=== PATIENT | female | born 1950 | race Caucasian/White ===

== ENCOUNTER 2017-11-02 10:11 | Inpatient (IN) | payer OTHER ==
[2017-11-02] MEDS: ALBUTEROL SO4 2.5/IPRATROPIUM 0.5 INH SOL 3 ML VIAL.NEB. NEB SCH ×4 (10:17→11:29)
[2017-11-02] MEDS ORDERED: DEXAMETHASONE SOD PHOSPHATE 10 MG/1 ML VIAL IVPUSH ONE ×2 (10:31→19:02)
[2017-11-02] MEDS ORDERED: RACEPINEPHRINE IH SOL 2.25% 11.25 MG/0.5 ML VIAL IH ONE (10:33)
[2017-11-02] MEDS ORDERED: DEXAMETHASONE SOD PHOSPHATE 10 MG/1 ML VIAL ONE ×2 (10:34→19:25)
--- NOTE | 2017-11-02 10:51 | PDOC ---
History of Present Illness - General Chief Complaint: Shortness of Breath Stated Complaint: diff breath Time Seen by Provider: 11/02/17 10:30 - History of Present Illness Initial Comments: 11/02/17 10:36 67yo F hx amyloid angiopathy c/b multiple hemorrhagic bleeds, most recently August 2017 s/p intubation, PEG tube ([facility], extubated 10/10), hx of heavy smoking but no diagnosis of COPD presents to the ED with progressive respiratory distress since extubation. Pt's and brother at bedside provide most of the history due to pts clinical condition. They report pt has had respiratory issue since she was DC from the hospital. She was referred to ENT on 10/31 but per her refused a scope at the time. Pt has been on ventolin and albuterol nebs intermittently. Pt has prednisone/cortisone listed as allergies but pt got steroids during last inpt admission to [facility] per . Pt's states at time steroids make her itch. No recent fevers, chills. Pt was seen at [facility] twice over the last week for the respiratory issues. Pt was admitted to [facility] mid september for aggressive behavior thought to be due to amyloid. Pt's behavior is improved since she was initiated on haldol BID, states she is currently at her mental baseline. Remainder of history limited due to pt' s mental status. Past History - Past Medical History Allergies/Adverse Reactions: Allergies Allergy/AdvReac Type Severity Reaction Status Date / Time aspirin Allergy Verified 11/02/17 10:51 clindamycin Allergy Verified 11/02/17 10:27 codeine Allergy Verified 11/02/17 10:27 cortisone Allergy Verified 11/02/17 10:27 NSAIDS (Non-Steroidal Allergy Verified 11/02/17 10:51 Anti-Inflamma prednisone Allergy Verified 11/02/17 10:27 Cortisone injection Allergy itching Uncoded 11/02/17 10:27 metal Allergy Uncoded 11/02/17 10:27 Home Medications: Ambulatory Orders Haloperidol [Haldol -] 2 mg PO BID 11/02/17 Zolpidem Tartrate [Ambien] 5 mg PO HS 11/02/17 Cardiac Disorders: Yes (MVP) - Suicide/Smoking/Psychosocial Hx Smoking History: Current every day smoker Have you smoked in the past 12 months: Yes Number of Cigarettes Smoked Daily: 40 'Breaking Loose' booklet given: 03/17/14 Hx Alcohol Use: No Review of Systems - Review of Systems Comments:: 11/02/17 10:52 +SOB otherwise UTO *Physical Exam - Physical Exam Comments: 11/02/17 10:52 GENERAL: Awake, alert, in respiratory distress EYES: PERRLA, EOMI ENT: no evidence of OP obstruction or swelling NECK: +stridor LUNGS: Breath sounds equal, +transmitted upper airway sounds. Minimal wheezing, and no crackles HEART: Regular rate and rhythm, normal S1 and S2, no murmurs, rubs or gallops ABDOMEN: Soft, nontender, normoactive bowel sounds. No guarding, no rebound. No masses EXTREMITIES: Normal range of motion, no edema. No clubbing or cyanosis. No cords, erythema, or tenderness NEUROLOGICAL: cranial nerves grossly intact, normal strength x4 SKIN: Warm, Dry, normal turgor, no rashes or lesions noted. ED Treatment Course - LABORATORY CBC & Chemistry Diagram: 11/02/17 10:31 11/02/17 10:31 - RADIOLOGY Radiology Studies Ordered: Category Date Time Status CHEST X-RAY PORTABLE* [RAD] Stat Radiology 11/02/17 10:34 Ordered Medical Decision Making - Medical Decision Making 11/02/17 10:55 67yo F hx amyloid angiomyopathy c/b ICH s/p recent extubation 10/10 presents in respiratory distress likely 2/2 upper airway edema. Pt currently on bipap, given decadron, racemic epi, duonebs. CXR appears clear on my read. Labs including ABG pending. Pt will likely need transfer to ICU and ENT evaluation at [facility]. 11/02/17 13:42 Pt significantly improved on bipap after interventions Trop 0.12, likely demand ischemia from resp distress Case discussed with Dr. Laboy from [facility], awaiting call back after she discusses with attending 11/02/17 14:[address] Woodson who accepts pt to ICU. No beds for now, will work on making one 11/02/17 14:51 Case discussed with Dinora Capone, pt accepted for admission to Dr. Segura. 11/02/17 18:55 As of now, pt remains in ED as no ICU beds. Pt is stable on BIPAP. Signed out to overnight attending. *DC/Admit/Observation/Transfer Diagnosis at time of Disposition: Postextubation stridor - Discharge Dispostion Condition at time of disposition: Critical Decision to Admit order: Yes - Referrals - Patient Instructions - Post Discharge Activity - Attestations Physician Attestion: 11/02/17 14:54 I, Dr. Rolo Suarez MD, attest that this document has been prepared under my direction and personally reviewed by me in its entirety. I further attest, that it accurately reflects all work, treatment, procedures and medical decision -making performed by me.
[2017-11-02 11:22] LABS: BASO % 1.5 % (0-2.0); EOS % 0.1 % (0-4.5); HEMATOCRIT 43.6 % (32.4-45.2); HEMOGLOBIN 14.4 GM/dl (10.7-15.3); LYMPH % 8.3 % (8-40); MCH 30.8 pg (25.7-33.7); MEAN CELL VOLUME 93.2 fl (80-96); MEAN PLT VOLUME 8.5 fl (7.5-11.1); MONO % 2.2 % (3.8-10.2); NEUT % 87.9 % (42.8-82.8); PLATELET COUNT 283 K/MM3 (134-434); RBC 4.68 M/mm3 (3.60-5.2); RDW 13.6 % (11.6-15.6); WHITE BLOOD COUNT 8.9 K/mm3 (4.0-10.8)
[2017-11-02 11:28] LABS: ALBUMIN 4.2 g/dl (3.5-5.0); ALK PHOS 76 U/L (32-92); ANION GAP 10 (8-16); BILIRUBIN,TOTAL 0.8 mg/dl (0.2-1.0); BLOOD UREA NITROGEN 12 mg/dl (7-18); CALCIUM 9.5 mg/dl (8.4-10.2); CHLORIDE 104 mmol/L (98-107); CO2 25 mmol/L (22-28); GLUCOSE,RANDOM 106 mg/dl (74-106); SGOT/AST 22 U/L (10-42); SGPT/ALT 13 U/L (10-40); SODIUM 139 mmol/L (136-145); TOT PROT 7.2 g/dl (6.4-8.3)
[2017-11-02 11:33] LABS: CREATININE < 0.8 mg/dl (0.6-1.3)
[2017-11-02 12:50] LABS: ARTERIAL BLD GAS O2 SATURATION 95.8 % (90-98.9); ARTERIAL BLOOD GAS BASE EXCESS -1.2 meq/l (-2-2); ARTERIAL BLOOD GAS PCO2 48.5 mmHg (35-45); ARTERIAL BLOOD GAS PO2 82.9 mmHg (80-100); ARTERIAL BLOOD GAS pH 7.33 (7.35-7.45)
[2017-11-02 12:56] LABS: ALLENS TEST POSITIVE
[2017-11-02] MEDS ORDERED: HALOPERIDOL 2 MG TABLET PO ONE (14:16)
[2017-11-02] MEDS ORDERED: ALBUTEROL SO4 2.5/IPRATROPIUM 0.5 INH SOL 3 ML VIAL.NEB. NEB PRN (22:54)
[2017-11-02] MEDS ORDERED: ZOLPIDEM TARTRATE 5 MG TABLET PO ONE (23:02)
--- NOTE | 2017-11-02 23:03 | CONSULT ---
Consult Consult Specialty:: pulm critcal care Referred by:: johnathan ac Reason for Consultation:: resp insufficiency - History of Present Illness Chief Complaint: resp distress History of Present Illness: This is a 67yo F w/ pmhx of heavy smoking, ? COPD, cerebral amyloid angiopathy s /p multiple ICH, most recently a long hospitalization at [facility] ([facility]) in August 2017 where she req'ed intubation (extubated 10/10/17), and PEG tube, and eventually discharged to home. As per chart review, and brother endorse that she has had progressively worsening resp distress since her discharge to home. Pt was seen at [facility] twice over the last week for the respiratory issues. Pt was admitted to [facility] mid september for aggressive behavior thought to be due to amyloid; improved since being on home haldol BID and is at baseline MS. Of note, she was referred to ENT on 10/31 but refused a scope at the time. Pt has been on ventolin and albuterol nebs intermittently. Pt has prednisone/cortisone as listed as allergies (causes itching), but received steroids during her hospitalization at [facility] (per ) . No recent fevers, chills. At [place], pt VSS, but was noted to have SOB and mild inspiratory and expiratory stridor on exam. She was placed on Bipap with improvement, given IV decadron, and albuterol and atrovent nebs. Her labs were remarkable for ABG 7.33 /48/82, trop .12--> 0.07. CXR c/w chronic emphysematous changes. EKG normal. Pt admitted to [facility] ICU for further management of acute resp distress. Upon arrival to [facility] ICU, pt is alert and oriented to self and place only, confused, slow to speak given her neuro hx, and not able to provide a history. On exam has audible inspiratory and expiratory stridor, denies SOB/ dyspnea/ CP. Breath sounds are CTA b/l. oropharynx exam is unremarkable, neck is supple and no swelling appreciated. She is breathing comfortably off bipap and on RA sat'ing 95-100%. Albuterol, atrovent, spirvira, and haldol ordered. - History Source History Provided By: Patient, Medical Record Limitations to Obtaining History: Clinical Condition - Past Medical History BROADCAST NEWS PRODUCER: Yes: Other (cerbral amyloid angiopathy s/p multiple hemorrhagic bleeds) Cardio/Vascular: No: AFIB, Aneurysm, Aortic Insufficiency, Aortic Stenosis, CAD , CHF, Deep Vein Thrombosis, HTN, Hyperlipdemia, [place], Mitral Insufficiency, Mitral Stenosis, Murmur, Pulmonary Hypertension, Other Pulmonary: Yes: COPD (possible, unconfirmed) Gastrointestinal: No: Ascites, Cancer, Constipation, Crohn's Disease, Diverticulitis, Diverticulosis, Esophageal Varices, Gastritis, GERD, GI Bleed, Hemorrhoids, Hiatal Hernia, Inflamatory Bowel Disease, Irritable Bowel Disease, Pancreatitis, Peptic Ulcer Disease, Ulcerative Colitis, Other Hepatobiliary: No: Cirrhosis, Cholelithiasis, Cholecystitis, Choledocholithiasis , Hepatitis A, Hepatitis B, Hepatitis C, Other Renal/: No: Renal Failure, Renal Inusuff, BPH, Cancer, Hematuria, Hemodialysis , Neurogenic Bladder, Renal Calculi, UTI, Other Reproductive: No: Ectopic , Endometriosis, Fibroids, PID, Polycystic Ovary Syndrome, Postmenopausal, Other ...: No Heme/Onc: No: Anemia, B12 Deficiency, Bleeding Disorder, Cancer, Current Chemotherapy, Current Radiation Therapy, Hemochromatosis, Hypercoaguable State, Myeloproliferative Synd, Sickle Cell Disease, Sickle Cell Trait, Thrombocytopenia, Other Infectious Disease: No: AIDS, C-Diff, Herpes Zoster, HIV, MRSA, STD's, Tuberculosis, VREF, Other Psych: Yes: Other (agitation) Musculoskeletal: No: Bursitis, Chronic low back pain, Hemiparesis, Hemiplegia, Osteoarthritis, Paraplegia, Other Rheumatology: No: Fibromyalgia, Gout, Lupus, Rheumatoid Arthritis, Sarcoidosis, Vasculitis, Other ENT: No: Allergic Rhinitis, Sinusitis, Other Endocrine: No: Amherst's Disease, Kvng's Disease, Diabetes Insipidus, Diabetes Mellitus, Hyperparathyroidism, Hyperthyroidism, Hypothyroidism, Osteopenia, SIADH, Other Dermatology: No: Basal Cell, Cellulitis, Eczema, Melanoma, Psoriasis, Squamous Cell, Other - Alcohol/Substance Use Hx Alcohol Use: No History of Substance Use: reports: None - Smoking History Smoking history: Former smoker Have you smoked in the past 12 months: Yes Aproximately how many cigarettes per day: 40 - Social History Usual Living Arrangement: With Spouse ADL: Independent Place of : [place] History of Recent Travel: No Home Medications - Allergies Allergies/Adverse Reactions: Allergies Allergy/AdvReac Type Severity Reaction Status Date / Time aspirin Allergy Verified 11/02/17 10:51 clindamycin Allergy Verified 11/02/17 10:27 codeine Allergy Verified 11/02/17 10:27 cortisone Allergy Verified 11/02/17 10:27 NSAIDS (Non-Steroidal Allergy Verified 11/02/17 10:51 Anti-Inflamma prednisone Allergy Verified 11/02/17 10:27 Cortisone injection Allergy itching Uncoded 11/02/17 10:27 metal Allergy Uncoded 11/02/17 10:27 - Home Medications Home Medications: Ambulatory Orders Haloperidol [Haldol -] 2 mg PO BID 11/02/17 Zolpidem Tartrate [Ambien] 5 mg PO HS 11/02/17 Family Disease History - Family Disease History Family History: Unremarkable Review of Systems - Review of Systems Constitutional: reports: No Symptoms Eyes: reports: No Symptoms HENT: reports: No Symptoms Neck: reports: No Symptoms Cardiovascular: reports: No Symptoms. denies: Chest Pain, Edema, Palpitations Respiratory: reports: SOB, Other (stridor) Gastrointestinal: reports: No Symptoms Genitourinary: reports: No Symptoms Breasts: reports: No Symptoms Reported Musculoskeletal: reports: No Symptoms Integumentary: reports: No Symptoms Neurological: denies: No Symptoms, Change in LOC, Change in Speech, Confusion, Dizziness, Headache, Incoordination, Numbness, Parasthesia, Pre-Existing Deficit , Seizure, Syncope, Tremors, Unsteady Gait, Weakness, Other Endocrine: denies: No Symptoms, Excessive Sweating, Flushing, Increased Hunger, Increased Thirst, Intolerance to Cold, Intolerance to Heat, Unexplained Weight Gain, Unexplained Weight Loss, Other Hematology/Lymphatic: reports: No Symptoms. denies: Swollen Glands Psychiatric: reports: Other (agitation) Physical Exam Vital Signs: Vital Signs Temperature 98.7 F 11/02/17 22:18 Pulse Rate 80 11/02/17 22:18 Respiratory Rate 18 11/02/17 22:18 Blood Pressure 156/98 11/02/17 22:18 O2 Sat by Pulse Oximetry (%) 99 11/02/17 22:18 Constitutional: Yes: Well Nourished, No Distress, Calm Eyes: Yes: WNL, Conjunctiva Clear, EOM Intact HENT: Yes: WNL, Atraumatic, Normocephalic Neck: Yes: WNL, Supple, Trachea Midline. No: Lymphadenopathy, Tenderness Cardiovascular: Yes: WNL, Regular Rate and Rhythm Respiratory: Yes: WNL, Regular, CTA Bilaterally, Stridor. No: Cough, On BiPap, Rales Gastrointestinal: Yes: WNL, Normal Bowel Sounds ...Rectal Exam: Yes: Deferred Renal/: Yes: WNL Breast(s): Yes: WNL Musculoskeletal: Yes: Muscle Weakness Extremities: Yes: WNL Edema: No Peripheral Pulses WNL: Yes Integumentary: Yes: WNL Wound/Incision: No: Clean/Dry, Well Approximated, Sutures Intact, [place] Intact , Steri Strips, Open to air, Dressing Dry and Intact, Dressing Removed, [place] Removed, Sutures Removed, Draining, Reddened, Bleeding, Excoriated, Unapproximated, Other Neurological: Yes: WNL, Alert. No: Oriented (oriented to self and place. re- oriented to time), Facial Droop, Numbness, Seizure, Tremors ...Motor Strength: LLE, RLE (4/5 strength b/l) Psychiatric: Yes: WNL, Alert (conversive, delay in speech most likely 2/2 angiopathy) Labs: CBC, BMP 11/02/17 10:31 11/02/17 10:31 Problem List - Problems (1) Cerebral amyloid angiopathy Code(s): E85.4 - ORGAN-LIMITED AMYLOIDOSIS; I68.0 - CEREBRAL AMYLOID ANGIOPATHY (2) Intracranial hemorrhage Code(s): I62.9 - NONTRAUMATIC INTRACRANIAL HEMORRHAGE, UNSPECIFIED (3) Acute respiratory insufficiency Code(s): R06.89 - OTHER ABNORMALITIES OF BREATHING (4) Insomnia Code(s): G47.00 - INSOMNIA, UNSPECIFIED (5) Laryngeal stridor Code(s): J38.5 - LARYNGEAL SPASM Assessment/Plan This is a 67 yo woman with pmh of amyloid angiopathy, who presented to [place] ED w/ worsening respiratory distress at home, now admitted to [facility] ICU from [place] for further management of acute resp distress on bipap. #Respiratory insufficiency most likely 2/2 laryngeal edema of unclear origin ( recently extubation at [facility] vs rxn?) vs ?COPD exacerbation in the setting of distress and stridor, requiring bipap at [place]; now improved. Sat'ing 96- 100% off bipap and on RA; h/o heavy former smoker, recently extubated at [facility] on 10/10. CXR unremarkable - humidified 2L NC O2 as needed - Bipap if increased WOB - albuterol and atrovent nebs - spiriva daily - ENT consulted - Dr. Saldivar - send D-dimer - Echo #Amyloid angiopathy s/p multiple hemorrhagic bleeds (last in 08/2017) - Will require outpt neurology f/u, if pt not currently followed - Monitor MS for acute changes #h/o Agitation - Home haldol BID - UA #h/o Insomnia - Home Ambien 5mg qHS PPX: -Lovenox Full code
--- NOTE | 2017-11-02 23:26 | PN ---
Teaching Attending Note Name of Resident: Valentin Gill ATTENDING PHYSICIAN STATEMENT I saw and evaluated the patient. I reviewed the resident's note and discussed the case with the resident. I agree with the resident's findings and plan as documented. SUBJECTIVE: Patient is a 67 year old woman with history of cerebral? amyloid angiopathy transferred from [facility] for shortness of breath and acute respiratory failure that required BIPAP therapy. She has had progressive and/or ?epiosidc SOB since extubation on 10/10/17 after a long hospital stay at [facility] for intracranial hemorrhage. Her PMH is significant for multiple episodes of intracranial hemorrhage, allergy to steroids?, prior PEG feeding at [facility], episodes of confusional state and agitation and heavy smoking, though there is no confirmed diagnosis of COPD. She reported refused laryngoscopy by ENT on 10/31/17 for unclear reasons. In the ICU, patient is comfortable on room air off BIPAP, but is confused with slow speech and poor memory. OBJECTIVE: Alert, confused, but in no acute respiratory distress Vital Signs Period Temp Pulse Resp BP Sys/Hall Pulse Ox Last 24 Hr 98.4 F-98.7 F 67-108 18-28 112-157/52-101 91-100 HEENT: No Jaundice, eye redness or discharge, PERRLA, EOMI. Normocephalic, atraumatic. External ears are normal and hearing is grossly intact. No nasal discharge. Neck: Supple, nontender. No palpable adenopathy or thyromegaly. No JVD Chest: Good effort. Good air entry. No rales or wheezing. Clear to auscultation and percussion. Heart: Regular. No S3, rub or murmur Abdomen: Not distended, soft, nontender and no HSM. No rebound or guarding. Normoactive bowel sounds. Ext: Peripheral pulses intact. No leg edema. Skin: Warm and dry. No petechiae, rash or ecchymosis. Neuro: Alert and calm. Confused, but able to follow simple commands. Poor memory. Oriented to person. CN 2-12 grossly intact. Sensation grossly intact in all four extremities and DTR are symmetric. Current Medications Generic Name Dose Route Start Last Admin Trade Name Freq PRN Reason Stop Dose Admin Albuterol/Ipratropium 1 amp 11/02/17 22:54 Duoneb - NEB Q4H PRN SHORTNESS OF BREATH Chlorhexidine Gluconate 1 applic 11/03/17 22:00 Hibiclens For Decolonization - TP HS [facility] Enoxaparin Sodium 40 mg 11/03/17 10:00 Lovenox - SQ DAILY [facility] Mupirocin 1 applic 11/03/17 10:00 Bactroban Ointment (For Decolonization) - NS 11/08/17 09:59 BID [facility] Tiotropium [place] 1 puff 11/03/17 10:00 Spiriva - IH DAILY [facility] Home Medications Medication Instructions Recorded Haloperidol [Haldol -] 2 mg PO BID 11/02/17 Zolpidem Tartrate [Ambien] 5 mg PO HS 11/02/17 Abnormal Lab Results 11/02/17 11/02/17 11/02/17 10:31 10:31 10:31 Neutrophils % 87.9 H Monocytes % 2.2 L ABG pH 7.33 L ABG pCO2 at Pt Temp 48.5 H CK-MB (CK-2) 6.5 H Troponin I 11/02/17 11/02/17 10:31 18:28 Neutrophils % Monocytes % ABG pH ABG pCO2 at Pt Temp CK-MB (CK-2) Troponin I 0.12 H 0.07 H ASSESSMENT AND PLAN: 1. Shortness of breath - Etiology is unclear. No significant abnormality on CXR. She was treated with Decadron at [facility] for possible laryngeal edema. Will consult ENT for evaluation to rule out laryngeal injury following prolonged intubation. Will not give her anymore steroids. In view of her smoking history and episodic pattern of SOB, will consult pulmonary for PFTs. Will treat with Duoneb and Spiriva, O2 PRN, send blood for D-dimer and get an ECHO. Will also give protonix 40 mg po bid, in case SOB is partly due to reflux disease. 2. Cerebral amyloid angiopathy - Monitor her neurologic function closely and avoid antiplatelet agents. 3. Elevated troponi - Now trending down. Was likely due to demand ischemia. No EKG evidence of ACS. 4. DVT prophylaxis - Lovenox 40 mg sq q 24 hours 5. Advance directives - Full code
--- NOTE | 2017-11-02 23:54 | HP ---
CHIEF COMPLAINT: Respiratory distress PCP: Dr. Karan Villalpando Hx per pt (poor historian) and chart review; family not present at time HISTORY OF PRESENT ILLNESS: 67 yo woman with pmh of amyloid angiopathy w/ multiple hemorrhagic bleeds (most recently August 2017), as well as hx of heavy smoker (no formal diagnosis of COPD ) who presented to [place] ED from home due to worsening respiratory distress at home after recent extubation on 10/10 at [facility]. Per chart, pt was admitted at [facility] presumptively for hemorrhagic bleed, requiring intubation and PEG tube placement, recently extubated on 10/10. Since then, pt has been experiencing intermittent episodes of respiratory distress likely secondary to laryngeal edema s/p extubation and was schedule for ENT evaluation and scope today, however pt refused procedure for unknown reason. Pt has been receiving ventolin and albuterol nebs intermittently for respiratory distress and has been seen twice over the last week at [facility] for episodes of respiratory distress. Of note, pt recently also seen at [facility] for aggressive behavior secondary to AA, started on haldol 2mg BID for agitation with improvement of symptoms. Pt is at mental baseline currently. Pt with no diagnosed pulmonary conditions and is not on oxygen at home and does not take any pulmonary medication. No recent travel, sick contacts and fully ambulatory at baseline. She does not follow with a neurologist for AA per pt. On examination, pt endorses improved breathing and no complaints, taken off Bipap. Denies f/c/n/v/d, CP, sob, cough, ARMENTA, dizziness, dysuria, sore throat, difficulty swallowing, wheezing. Does endorse subjective throat tightness and SOB "yesterday". ER course was notable for: (1) Decadron x2, racemic epi given (2)ABG 7.33/48/82 (3)Pt placed on Bipap on presentation Recent Travel: None PAST MEDICAL HISTORY: MVP Amyloid angiopathy, hx of multiple bleeds ?Meniere's dz PAST SURGICAL HISTORY: ?PEG placement Social History: Smoking: Prior extensive hx of smoking 2PPD; pt denies being a current smoker Alcohol: Denies Drugs: Denies Family History: noncontributory Allergies aspirin Allergy (Verified 11/02/17 10:51) clindamycin Allergy (Verified 11/02/17 10:27) codeine Allergy (Verified 11/02/17 10:27) cortisone Allergy (Verified 11/02/17 10:27) NSAIDS (Non-Steroidal Anti-Inflamma Allergy (Verified 11/02/17 10:51) prednisone Allergy (Verified 11/02/17 10:27) Cortisone injection Allergy (Uncoded 11/02/17 10:27) itching metal Allergy (Uncoded 11/02/17 10:27) HOME MEDICATIONS: Home Medications Medication Instructions Recorded Haloperidol [Haldol -] 2 mg PO BID 11/02/17 Zolpidem Tartrate [Ambien] 5 mg PO HS 11/02/17 REVIEW OF SYSTEMS (limited due to patient mental status) CONSTITUTIONAL: Absent: fever, chills, loss of appetite HEENT: +throat swelling Absent: nasal congestion, throat pain, difficulty swallowing CARDIOVASCULAR: Absent: chest pain, peripheral edema RESPIRATORY: +stridor Absent: cough, shortness of breath GASTROINTESTINAL: Absent: abdominal pain, nausea, vomiting, diarrhea, constipation GENITOURINARY: Absent: dysuria PHYSICAL EXAMINATION Vital Signs - 24 hr 11/02/17 11/02/17 11/02/17 10:13 10:40 10:46 Temperature 98.4 F Pulse Rate 108 H 101 H Pulse Rate [ Apical] Respiratory 28 H Rate Blood Pressure 157/101 Blood Pressure [Right Arm] O2 Sat by Pulse 91 L 100 100 Oximetry (%) 11/02/17 11/02/17 11/02/17 10:53 10:55 11:30 Temperature Pulse Rate 95 H Pulse Rate [ 97 H 75 Apical] Respiratory 24 19 Rate Blood Pressure Blood Pressure 135/71 132/83 [Right Arm] O2 Sat by Pulse 100 100 100 Oximetry (%) 11/02/17 11/02/17 11/02/17 12:52 13:59 15:30 Temperature Pulse Rate Pulse Rate [ 72 67 80 Apical] Respiratory 20 20 20 Rate Blood Pressure Blood Pressure 112/52 114/72 133/72 [Right Arm] O2 Sat by Pulse 100 98 Oximetry (%) 11/02/17 11/02/17 11/02/17 17:19 18:51 20:20 Temperature Pulse Rate Pulse Rate [ 87 74 90 Apical] Respiratory 18 18 Rate Blood Pressure Blood Pressure 131/77 138/53 129/69 [Right Arm] O2 Sat by Pulse 100 100 99 Oximetry (%) 11/02/17 22:18 Temperature 98.7 F Pulse Rate 80 Pulse Rate [ Apical] Respiratory 18 Rate Blood Pressure 156/98 Blood Pressure [Right Arm] O2 Sat by Pulse 99 Oximetry (%) GENERAL: Elderly woman, A&Ox2 (oriented to person and place, not date), in no acute distress HEAD: Normal with no signs of trauma. EYES: Pupils equal, round and reactive to light, extraocular movements intact, sclera anicteric, conjunctiva clear. No lid lag. EARS, NOSE, THROAT: Ears normal, nares patent, oropharynx clear without exudates. Moist mucous membranes. NECK: No notable peritracheal edema. Mild I/E stridor noted. Normal range of motion, supple without lymphadenopathy, JVD, or masses. LUNGS: Decreased breath sounds at bases. No wheezes, and no crackles. No accessory muscle use. HEART: Regular rate and rhythm, normal S1 and S2 without murmur, rub or gallop. ABDOMEN: Soft, nontender, not distended, normoactive bowel sounds, no guarding, no rebound, no masses. No hepatomegaly or splenomegaly. MUSCULOSKELETAL: Normal range of motion at all joints. No bony deformities or tenderness. No CVA tenderness. UPPER EXTREMITIES: 2+ pulses, warm, well-perfused. No cyanosis. No clubbing. No peripheral edema. LOWER EXTREMITIES: 2+ pulses, warm, well-perfused. No calf tenderness. No peripheral edema. NEUROLOGICAL: Cranial nerves II-XII intact. Slow speech. Gait not evaluated. PSYCHIATRIC: Cooperative. Good eye contact. Slow mentation notable for thought blocking and tangential speech. SKIN: Warm, dry, normal turgor, no rashes or lesions noted, normal capillary refill. Laboratory Results - last 24 hr CBC, BMP 11/02/17 10:31 11/02/17 10:31 11/02/17 11/02/17 11/02/17 10:31 10:31 10:31 WBC 8.9 D RBC 4.68 Hgb 14.4 Hct 43.6 MCV 93.2 MCH 30.8 MCHC 33.0 RDW 13.6 Plt Count 283 MPV 8.5 Absolute Neuts (auto) 87.9 Neutrophils % 87.9 H Lymphocytes % 8.3 Monocytes % 2.2 L Eosinophils % 0.1 Basophils % 1.5 Anticoagulation Therapy No Result Required. Puncture Site No Result Required. ABG pH 7.33 L ABG pCO2 at Pt Temp 48.5 H ABG pO2 at Pt Temp 82.9 ABG HCO3 24.7 ABG O2 Sat (Measured) 95.8 ABG O2 Content 18.4 ABG Base Excess -1.2 Osmel Test Positive O2 Delivery Device No Result Required. Oxygen Flow Rate No Result Required. Vent Mode No Result Required. Vent Rate No Result Required. Mechanical Rate No Result Required. Pressure Support Vent No Result Required. Sodium 139 Potassium 4.0 Chloride 104 Carbon Dioxide 25 Anion Gap 10 BUN 12 D Creatinine < 0.8 Creat Clearance w eGFR > 60 Random Glucose 106 D Lactic Acid Calcium 9.5 Total Bilirubin 0.8 D AST 22 ALT 13 D Alkaline Phosphatase 76 D Creatine Kinase 174 Creatine Kinase Index 3.7 CK-MB (CK-2) 6.5 H Troponin I Total Protein 7.2 Albumin 4.2 11/02/17 11/02/17 11/02/17 10:31 10:31 18:28 WBC RBC Hgb Hct MCV MCH MCHC RDW Plt Count MPV Absolute Neuts (auto) Neutrophils % Lymphocytes % Monocytes % Eosinophils % Basophils % Anticoagulation Therapy Puncture Site ABG pH ABG pCO2 at Pt Temp ABG pO2 at Pt Temp ABG HCO3 ABG O2 Sat (Measured) ABG O2 Content ABG Base Excess Osmel Test O2 Delivery Device Oxygen Flow Rate Vent Mode Vent Rate Mechanical Rate Pressure Support Vent Sodium Potassium Chloride Carbon Dioxide Anion Gap BUN Creatinine Creat Clearance w eGFR Random Glucose Lactic Acid 1.0 Calcium Total Bilirubin AST ALT Alkaline Phosphatase Creatine Kinase Creatine Kinase Index CK-MB (CK-2) Troponin I 0.12 H 0.07 H Total Protein Albumin No micro EKG - NSR, No ST or Twave changes, normal QTC CXR: BL emphysematous changes with flattened diaphragms BL. No pneumothorax or consolidations noted. No other acute pathology noted. Pt rotated to L. ASSESSMENT/PLAN: 67 yo woman with pmh of amyloid angiopathy w/ multiple hemorrhagic bleeds (most recently August 2017), as well as hx of heavy smoker (no formal diagnosis of COPD ) who presented to [place] ED from home due to worsening respiratory distress at home after recent extubation on 10/10 at [facility]. physical exam notable for mild I/E stridor. Labs notable for no wbc count, trop 0.12 -> 0.07. ABG 7.. CXR notable for chronic emphysematous changes; ekg normal. Will admit to ICU for Acute on Chronic respiratory distress secondary to ?laryngeal edema vs COPD exacerbation, however exam clinically inconsistent with the ladder. No evidence of active infection or acute pulmonary disease currently. #Respiratory Distress/stridor - ABG 7., ENT consulted (Dr. Saldivar); currently in no respiratory distress, satting 96-100% on RA; CXR unremarkable - Admit to ICU - 2L NC O2 as needed; escalate to Bipap PRN - duonebs q4h - spiriva daily - PFTs - Pulm consult - Dr. Choi - ENT consult - Dr. Saldivar - Pulse Ox monitoring - D-dimer - If febrile, consider hendrix culture, lactate, fluids, abx #Elevated troponins - 0.12 -> 0.07 - downtrending; likely transient demand ischemia - Echo - Consider cardiology consult #AA - Will require outpt neurology f/u, if pt not currently followed - Monitor MS for acute changes #Agitation - Haldol BID - UA #Insomnia - Ambien 5mg qHS PPX Lovenox FEN PO hydration Daily lytes, no abnormalities Regular diet Plan discussed with attending, Dr. Zena Gill, PGY1 Visit type - Emergency Visit Emergency Visit: Yes ED Registration Date: 11/02/17 Care time: The patient presented to the Emergency Department on the above date and was hospitalized for further evaluation of their emergent condition. - New Patient This patient is new to me today: Yes Date on this admission: 11/10/17 - Critical Care Critical Care patient: No Hospitalist Screening - Colonoscopy Questionnaire Colonoscopy Questionnaire: Colonoscopy Questionnaire - Patient: 50 - 75 years old and never had a screening colonoscopy: Unknown History of colon or rectal polyps, or CA: Unknown History of IBD, Crohn's disease or UC: Unknown History of abdominal radiation therapy as a child: Unknown - Relative: 1 with colon or rectal CA, or polyps at age 60 or younger: Unknown Colon or rectal CA diagnosed at age 45 or younger: Unknown Multiple relatives with colon or rectal CA: Unknown - Outcome: Screening Result: Negative Screen
[2017-11-03 06:46] LABS: BASO % 0.1 % (0-2.0); HEMATOCRIT 38.5 % (32.4-45.2); HEMOGLOBIN 13.2 GM/dL (10.7-15.3); LYMPH % 11.7 % (8-40); MCH 31.6 pg (25.7-33.7); MCHC 34.2 g/dl (32.0-36.0); MEAN CELL VOLUME 92.4 fl (80-96); MEAN PLT VOLUME 7.9 fl (7.5-11.1); MONO % 2.6 % (3.8-10.2); NEUT % 85.6 % (42.8-82.8); PLATELET COUNT 230 K/MM3 (134-434); RBC 4.17 M/mm3 (3.60-5.2); RDW 14.2 % (11.6-15.6); WHITE BLOOD COUNT 5.7 K/mm3 (4.0-10.0)
[2017-11-03 06:57] LABS: INR 1.1 (0.82-1.09); PROTHROMBIN TIME (PATIENT) 12.4 SEC (9.7-13.0)
[2017-11-03 07:07] LABS: CHLORIDE 107 mmol/L (98-107); POTASSIUM 3.7 mmol/L (3.5-5.1); SODIUM 140 mmol/L (136-145)
[2017-11-03 07:15] LABS: ALBUMIN 3.4 g/dl (3.4-5.0); ALK PHOS 76 U/L (45-117); ANION GAP 7 (8-16); BILIRUBIN,TOTAL 0.6 mg/dL (0.2-1.0); BLOOD UREA NITROGEN 20 mg/dL (7-18); CALCIUM 8.9 mg/dL (8.5-10.1); CO2 26 mmol/L (21-32); CREATININE 0.5 mg/dL (0.55-1.02); GLUCOSE,RANDOM 105 mg/dL (74-106); MAGNESIUM 2.4 mg/dL (1.8-2.4); PHOSPHOROUS 3.2 mg/dL (2.5-4.9); SGOT/AST 11 U/L (15-37); SGPT/ALT 16 U/L (12-78); TOT PROT 6.4 g/dl (6.4-8.2)
[2017-11-03] MEDS ORDERED: DEXAMETHASONE 4 MG TABLET (FP) PO ONE (09:32)
[2017-11-03] MEDS ORDERED: RACEPINEPHRINE IH SOL 2.25% 11.25 MG/0.5 ML VIAL IH ONE (09:32)
[2017-11-03] MEDS: MUPIROCIN 2% TOPICAL OINTMENT FOR DECOLONIZATION NS SCH ×2 (09:40→21:58)
[2017-11-03] MEDS: NICOTINE 7 MG/24 HOURS TOPICAL PATCH TD SCH (09:40)
[2017-11-03] MEDS ORDERED: ENOXAPARIN NA (PORCINE) 40 MG/0.4 ML DISP.SYRIN SQ SCH (10:00)
[2017-11-03] MEDS ORDERED: TIOTROPIUM BROMIDE 18 MCG CAPSULES IH SCH (10:00)
--- NOTE | 2017-11-03 11:00 | PN ---
Teaching Attending Note Name of Resident: Estuardo Biswas ATTENDING PHYSICIAN STATEMENT I saw and evaluated the patient. I reviewed the resident's note and discussed the case with the resident. I agree with the resident's findings and plan as documented. SUBJECTIVE: Patient seen and examined in the ICU. Awake and alert. Mildly confused. Mild stridor noted when speaking. Denies CP. SOB better. Intake & Output 10/31/17 11/01/17 11/02/17 11/03/17 23:59 23:59 23:59 23:59 Intake Total 50 50 Balance 50 50 Weight 138 lb 14.4 oz Last Vital Signs Temp Pulse Resp BP Pulse Ox 98.7 F 75 18 104/49 100 11/03/17 10:00 11/03/17 10:00 11/03/17 10:00 11/03/17 10:00 11/03/17 10:00 Active Medications Albuterol/Ipratropium (Duoneb -) 1 amp NEB Q4H PRN PRN Reason: SHORTNESS OF BREATH Chlorhexidine Gluconate (Hibiclens For Decolonization -) 1 applic TP HS ELDA Mupirocin (Bactroban Ointment (For Decolonization) -) 1 applic NS BID ELDA Stop: 11/08/17 09:59 Nicotine (Nicoderm Patch -) 7 mg TD DAILY ELDA Tiotropium [place] (Spiriva -) 1 puff IH DAILY ELDA Constitutional: Yes: Well Nourished, No Distress, Mildly confused Eyes: Yes: WNL, Conjunctiva Clear, EOM Intact HENT: Yes: WNL, Atraumatic, Normocephalic Neck: Yes: WNL, Supple, Trachea Midline. No: Lymphadenopathy, Tenderness Cardiovascular: Yes: WNL, Regular Rate and Rhythm Respiratory: Yes: WNL, Regular, CTA Bilaterally, Stridor. No: Cough, On BiPap, Rales Gastrointestinal: Yes: WNL, Normal Bowel Sounds ...Rectal Exam: Yes: Deferred Renal/: Yes: WNL Breast(s): Yes: WNL Musculoskeletal: Yes: Muscle Weakness Extremities: Yes: WNL Edema: No Peripheral Pulses WNL: Yes Integumentary: Yes: WNL Wound/Incision: No: Clean/Dry, Well Approximated, Sutures Intact, [place] Intact , Steri Strips, Open to air, Dressing Dry and Intact, Dressing Removed, [place] Removed, Sutures Removed, Draining, Reddened, Bleeding, Excoriated, Unapproximated, Other Neurological: Yes: WNL, Alert. No: Oriented (oriented to self and place. re- oriented to time), Facial Droop, Numbness, Seizure, Tremors ...Motor Strength: LLE, RLE (4/5 strength b/l) Psychiatric: Yes: WNL, Alert (conversive, delay in speech most likely 2/2 angiopathy) Labs: Laboratory Results - last 24 hr 11/02/17 11/02/17 11/02/17 10:31 10:31 10:31 WBC 8.9 D RBC 4.68 Hgb 14.4 Hct 43.6 MCV 93.2 MCH 30.8 MCHC 33.0 RDW 13.6 Plt Count 283 MPV 8.5 Absolute Neuts (auto) 87.9 Neutrophils % 87.9 H Lymphocytes % 8.3 Monocytes % 2.2 L Eosinophils % 0.1 Basophils % 1.5 Nucleated RBC % PT with INR INR D-Dimer Anticoagulation Therapy No Result Required. Puncture Site No Result Required. ABG pH 7.33 L ABG pCO2 at Pt Temp 48.5 H ABG pO2 at Pt Temp 82.9 ABG HCO3 24.7 ABG O2 Sat (Measured) 95.8 ABG O2 Content 18.4 ABG Base Excess -1.2 Osmel Test Positive O2 Delivery Device No Result Required. Oxygen Flow Rate No Result Required. Vent Mode No Result Required. Vent Rate No Result Required. Mechanical Rate No Result Required. Pressure Support Vent No Result Required. Sodium 139 Potassium 4.0 Chloride 104 Carbon Dioxide 25 Anion Gap 10 BUN 12 D Creatinine < 0.8 Creat Clearance w eGFR > 60 Random Glucose 106 D Lactic Acid Calcium 9.5 Phosphorus Magnesium Total Bilirubin 0.8 D AST 22 ALT 13 D Alkaline Phosphatase 76 D Creatine Kinase 174 Creatine Kinase Index 3.7 CK-MB (CK-2) 6.5 H Troponin I Total Protein 7.2 Albumin 4.2 11/02/17 11/02/17 11/02/17 10:31 10:31 18:28 WBC RBC Hgb Hct MCV MCH MCHC RDW Plt Count MPV Absolute Neuts (auto) Neutrophils % Lymphocytes % Monocytes % Eosinophils % Basophils % Nucleated RBC % PT with INR INR D-Dimer Anticoagulation Therapy Puncture Site ABG pH ABG pCO2 at Pt Temp ABG pO2 at Pt Temp ABG HCO3 ABG O2 Sat (Measured) ABG O2 Content ABG Base Excess Osmel Test O2 Delivery Device Oxygen Flow Rate Vent Mode Vent Rate Mechanical Rate Pressure Support Vent Sodium Potassium Chloride Carbon Dioxide Anion Gap BUN Creatinine Creat Clearance w eGFR Random Glucose Lactic Acid 1.0 Calcium Phosphorus Magnesium Total Bilirubin AST ALT Alkaline Phosphatase Creatine Kinase Creatine Kinase Index CK-MB (CK-2) Troponin I 0.12 H 0.07 H Total Protein Albumin 11/03/17 11/03/17 11/03/17 05:45 05:45 05:45 WBC 5.7 RBC 4.17 Hgb 13.2 Hct 38.5 MCV 92.4 MCH 31.6 MCHC 34.2 RDW 14.2 Plt Count 230 MPV 7.9 Absolute Neuts (auto) 4.9 Neutrophils % 85.6 H Lymphocytes % 11.7 Monocytes % 2.6 L Eosinophils % 0.0 Basophils % 0.1 Nucleated RBC % 0 PT with INR 12.40 INR 1.10 D-Dimer Anticoagulation Therapy Puncture Site ABG pH ABG pCO2 at Pt Temp ABG pO2 at Pt Temp ABG HCO3 ABG O2 Sat (Measured) ABG O2 Content ABG Base Excess Osmel Test O2 Delivery Device Oxygen Flow Rate Vent Mode Vent Rate Mechanical Rate Pressure Support Vent Sodium 140 Potassium 3.7 Chloride 107 Carbon Dioxide 26 Anion Gap 7 L BUN 20 H Creatinine 0.5 L Creat Clearance w eGFR > 60 Random Glucose 105 Lactic Acid Calcium 8.9 Phosphorus 3.2 Magnesium 2.4 Total Bilirubin 0.6 AST 11 L ALT 16 Alkaline Phosphatase 76 Creatine Kinase Creatine Kinase Index CK-MB (CK-2) Troponin I Total Protein 6.4 Albumin 3.4 11/03/17 05:45 WBC RBC Hgb Hct MCV MCH MCHC RDW Plt Count MPV Absolute Neuts (auto) Neutrophils % Lymphocytes % Monocytes % Eosinophils % Basophils % Nucleated RBC % PT with INR INR D-Dimer < 200 Anticoagulation Therapy Puncture Site ABG pH ABG pCO2 at Pt Temp ABG pO2 at Pt Temp ABG HCO3 ABG O2 Sat (Measured) ABG O2 Content ABG Base Excess Osmel Test O2 Delivery Device Oxygen Flow Rate Vent Mode Vent Rate Mechanical Rate Pressure Support Vent Sodium Potassium Chloride Carbon Dioxide Anion Gap BUN Creatinine Creat Clearance w eGFR Random Glucose Lactic Acid Calcium Phosphorus Magnesium Total Bilirubin AST ALT Alkaline Phosphatase Creatine Kinase Creatine Kinase Index CK-MB (CK-2) Troponin I Total Protein Albumin Problem List - Problems (1) Cerebral amyloid angiopathy: multiple hemorrhages 08/2017 Code(s): E85.4 - ORGAN-LIMITED AMYLOIDOSIS; I68.0 - CEREBRAL AMYLOID ANGIOPATHY (2) Intracranial hemorrhage Code(s): I62.9 - NONTRAUMATIC INTRACRANIAL HEMORRHAGE, UNSPECIFIED (3) Acute respiratory insufficiency Code(s): R06.89 - OTHER ABNORMALITIES OF BREATHING (4) Insomnia Code(s): G47.00 - INSOMNIA, UNSPECIFIED (5) Laryngeal stridor Code(s): J38.5 - LARYNGEAL SPASM Assessment/Plan Decadron R Epineprhine PRN Humidified NC O2 BD TX Spiriva OD ENT evaluation has been called Haldol BID VTE prophylaxis ICU monitoring for airway monitoring Dr Woodson Critical care time spent in reviewing chart, evaluating patient and formulating plan - 36 minutes.
--- NOTE | 2017-11-03 11:31 | PN ---
Physical Exam: SUBJECTIVE: Patient seen and examined comfortable on room air. cooperative, family at bedside provided additional hx Pt not a reliable historian. She has been having aggressive behaviours and increased sob since discharge from [facility] after prolonged neuroICU stay s/p intracranial hemorrhage. She had been to [place] and subacute prior to returning home. When she went to ENT for scope to evaluate the stridor and sob, pt refused to be scoped/ She attempted to treat sob with ventolin and nebs at home without relief and worsening progression, she was then brought to [place] for furthe evaluation. At [facility] she was treated with bipap to maintain >90%. upon transfer to ICU she was breathing comfortably on 3L to maintain sats >90% as per family, she has not had any sick contacts or any difficulty eating - no choking episodes with solids or liquids. pt believes voice is more "nasally" than usual. denies cough. OBJECTIVE: Vital Signs Period Temp Pulse Resp BP Sys/Hall Pulse Ox Last 24 Hr 97.2 F-98.7 F 60-90 16-20 98-156/49-98 97-100 GENERAL: The patient is awake, alert, oriented to person, thinks this is [facility]/September/2017 and aware martell is president, in no acute distress. HEAD: Normal with no signs of trauma. EYES: PERRL, extraocular movements intact, sclera anicteric, conjunctiva clear. No ptosis. ENT: nares patent, oropharynx clear without exudates, moist mucous membranes. no erythema, no thrush NECK: Trachea midline, full range of motion, supple. audible stridor from doorway LUNGS: +wheezing, +rhonchi in b/l lungs HEART: Regular rate and rhythm, S1, S2 without murmur, rub or gallop. ABDOMEN: Soft, nontender, nondistended, normoactive bowel sounds, no guarding, no rebound EXTREMITIES: 2+ DP and radial pulses, warm, well-perfused, no edema. NEUROLOGICAL: Cranial nerves II through XII grossly intact. Normal speech. masked facies. gait unsteady(shuffling, requires assistance) PSYCH: at times aggressive with staff and combative SKIN: Warm, dry, normal turgor, no rashes or lesions note Laboratory Results - last 24 hr 11/02/17 11/02/17 11/02/17 10:31 10:31 10:31 WBC RBC Hgb Hct MCV MCH MCHC RDW Plt Count MPV Absolute Neuts (auto) Neutrophils % Lymphocytes % Monocytes % Eosinophils % Basophils % Nucleated RBC % PT with INR INR D-Dimer Puncture Site No Result Required. ABG pH 7.33 L ABG pCO2 at Pt Temp 48.5 H ABG pO2 at Pt Temp 82.9 ABG HCO3 24.7 ABG O2 Sat (Measured) 95.8 ABG O2 Content 18.4 ABG Base Excess -1.2 Osmel Test Positive Oxygen Flow Rate No Result Required. Sodium 139 Potassium 4.0 Chloride 104 Carbon Dioxide 25 Anion Gap 10 BUN 12 D Creatinine < 0.8 Creat Clearance w eGFR > 60 Random Glucose 106 D Lactic Acid Calcium 9.5 Phosphorus Magnesium Total Bilirubin 0.8 D AST 22 ALT 13 D Alkaline Phosphatase 76 D Creatine Kinase 174 Creatine Kinase Index 3.7 CK-MB (CK-2) 6.5 H Troponin I 0.12 H Total Protein 7.2 Albumin 4.2 11/02/17 11/02/17 11/03/17 10:31 18:28 05:45 WBC 5.7 RBC 4.17 Hgb 13.2 Hct 38.5 MCV 92.4 MCH 31.6 MCHC 34.2 RDW 14.2 Plt Count 230 MPV 7.9 Absolute Neuts (auto) 4.9 Neutrophils % 85.6 H Lymphocytes % 11.7 Monocytes % 2.6 L Eosinophils % 0.0 Basophils % 0.1 Nucleated RBC % 0 PT with INR INR D-Dimer Puncture Site ABG pH ABG pCO2 at Pt Temp ABG pO2 at Pt Temp ABG HCO3 ABG O2 Sat (Measured) ABG O2 Content ABG Base Excess Osmel Test Oxygen Flow Rate Sodium Potassium Chloride Carbon Dioxide Anion Gap BUN Creatinine Creat Clearance w eGFR Random Glucose Lactic Acid 1.0 Calcium Phosphorus Magnesium Total Bilirubin AST ALT Alkaline Phosphatase Creatine Kinase Creatine Kinase Index CK-MB (CK-2) Troponin I 0.07 H Total Protein Albumin 11/03/17 11/03/17 11/03/17 05:45 05:45 05:45 WBC RBC Hgb Hct MCV MCH MCHC RDW Plt Count MPV Absolute Neuts (auto) Neutrophils % Lymphocytes % Monocytes % Eosinophils % Basophils % Nucleated RBC % PT with INR 12.40 INR 1.10 D-Dimer < 200 Puncture Site ABG pH ABG pCO2 at Pt Temp ABG pO2 at Pt Temp ABG HCO3 ABG O2 Sat (Measured) ABG O2 Content ABG Base Excess Osmel Test Oxygen Flow Rate Sodium 140 Potassium 3.7 Chloride 107 Carbon Dioxide 26 Anion Gap 7 L BUN 20 H Creatinine 0.5 L Creat Clearance w eGFR > 60 Random Glucose 105 Lactic Acid Calcium 8.9 Phosphorus 3.2 Magnesium 2.4 Total Bilirubin 0.6 AST 11 L ALT 16 Alkaline Phosphatase 76 Creatine Kinase Creatine Kinase Index CK-MB (CK-2) Troponin I Total Protein 6.4 Albumin 3.4 Active Medications Generic Name Dose Route Start Last Admin Trade Name Freq PRN Reason Stop Dose Admin Albuterol/Ipratropium 1 amp 11/02/17 22:54 Duoneb - NEB Q4H PRN SHORTNESS OF BREATH Chlorhexidine Gluconate 1 applic 11/03/17 22:00 Hibiclens For Decolonization - TP HS ELDA Mupirocin 1 applic 11/03/17 10:00 11/03/17 09:40 Bactroban Ointment (For Decolonization) - NS 11/08/17 09:59 1 applic BID ELDA Administration Nicotine 7 mg 11/03/17 10:00 11/03/17 09:40 Nicoderm Patch - TD Not Given DAILY ELDA Tiotropium [place] 1 puff 11/03/17 10:00 11/03/17 10:10 Spiriva - IH 1 puff DAILY ELDA Administration ASSESSMENT/PLAN: 67 yr old woman with hx of smoking, amyloid angiopathy, hx of multiple ICHs, since age 15 1-2pks/daily quit 1 month ago after 30-day neuroICU stay at [facility] for acute ICH was brought in by family for SOB. In ICU for monitoring of stridor. - Respiratory -- given decadron 2mg and racemic epi -- duonebs q4hr prn -- pending ENT consultation for eval of stridor, ddx includes mass, trauma from prolonged intubation, vocal cord edema, effects of prolonged ICU stay -- currently protecting airway and comfortable on RA -- smoking cessation - pt has been abstinent since August(from time of her ICH), offered nicotine patch, pt accepted - Cardiovascular - troponemia - trended down, no acute EKG changes. likely transient, echo pending - Prophylaxis - SCD's while in Bed, hold off on medical AC due to recent ICH - Neurological/Psych -- hold home haldol 2mg po bid due to prolonged Qtc, use zyprexa 5mg instead - Diet: regular, pt tolerating - will need physical therapy once stable for deconditioning #GOC, discussed with [id number] at bedside(nurse), she is involved in pt's care. pt has who is likely surrogate. as far NATHEN is aware pt does not have living will. family at bedside updated on current investigations. FULL CODE Visit type - Emergency Visit Emergency Visit: No - New Patient This patient is new to me today: Yes Date on this admission: 11/03/17 - Critical Care Critical Care patient: Yes Total Critical Care Time (in minutes): 35 Critical Care Statement: The care of this patient involved high complexity decision making to prevent further life threatening deterioration of the patient 's condition and/or to evaluate & treat vital organ system(s) failure or risk of failure.
--- NOTE | 2017-11-03 13:19 | PN ---
Physical Exam: SUBJECTIVE: No events overnight after initial admission. Pt had some slight shortness of breath and was given a duoneb treatment prior to examination. Pt denies any shortness of breath, difficulty swallowing, sore throat, chest pain, palpitations. OBJECTIVE: Vital Signs Period Temp Pulse Resp BP Sys/Hall Pulse Ox Last 24 Hr 97.2 F-98.7 F 60-90 16-20 98-156/49-98 96-100 GENERAL: Elderly woman, A&Ox2 (oriented to person and place, not date), in no acute distress HEENT: EOMI, LISA, moist mucosa, no edema of the oropharynx noted, uvula normal size with normal elevation NECK: No notable peritracheal edema. Mild inspiratory stridor noted. No masses palpated, No JVD LUNGS: Decreased breath sounds at bases. No wheezes, and no crackles. No accessory muscle use. HEART: RRR, normal S1 and S2 without murmur ABDOMEN: Soft, NT, ND, normoactive bowel sounds, no guarding, No hepatomegaly MUSCULOSKELETAL: Normal range of motion at all joints. No bony deformities or tenderness. No CVA tenderness. EXTREMITIES: 2+ DP pulses, No peripheral edema. PSYCHIATRIC: Needs repeated commands to cooperate. Slow mentation notable for thought blocking and tangential speech. Flat affect SKIN: Warm, dry, no rashes or lesions noted Laboratory Results - last 24 hr 11/02/17 11/03/17 11/03/17 18:28 05:45 05:45 WBC 5.7 RBC 4.17 Hgb 13.2 Hct 38.5 MCV 92.4 MCH 31.6 MCHC 34.2 RDW 14.2 Plt Count 230 MPV 7.9 Absolute Neuts (auto) 4.9 Neutrophils % 85.6 H Lymphocytes % 11.7 Monocytes % 2.6 L Eosinophils % 0.0 Basophils % 0.1 Nucleated RBC % 0 PT with INR 12.40 INR 1.10 D-Dimer Sodium Potassium Chloride Carbon Dioxide Anion Gap BUN Creatinine Creat Clearance w eGFR Random Glucose Calcium Phosphorus Magnesium Total Bilirubin AST ALT Alkaline Phosphatase Troponin I 0.07 H Total Protein Albumin 11/03/17 11/03/17 05:45 05:45 WBC RBC Hgb Hct MCV MCH MCHC RDW Plt Count MPV Absolute Neuts (auto) Neutrophils % Lymphocytes % Monocytes % Eosinophils % Basophils % Nucleated RBC % PT with INR INR D-Dimer < 200 Sodium 140 Potassium 3.7 Chloride 107 Carbon Dioxide 26 Anion Gap 7 L BUN 20 H Creatinine 0.5 L Creat Clearance w eGFR > 60 Random Glucose 105 Calcium 8.9 Phosphorus 3.2 Magnesium 2.4 Total Bilirubin 0.6 AST 11 L ALT 16 Alkaline Phosphatase 76 Troponin I Total Protein 6.4 Albumin 3.4 Active Medications Generic Name Dose Route Start Last Admin Trade Name Freq PRN Reason Stop Dose Admin Albuterol/Ipratropium 1 amp 11/02/17 22:54 Duoneb - NEB Q4H PRN SHORTNESS OF BREATH Chlorhexidine Gluconate 1 applic 11/03/17 22:00 Hibiclens For Decolonization - TP HS ELDA Mupirocin 1 applic 11/03/17 10:00 11/03/17 09:40 Bactroban Ointment (For Decolonization) - NS 11/08/17 09:59 1 applic BID ELDA Administration Nicotine 7 mg 11/03/17 10:00 11/03/17 09:40 Nicoderm Patch - TD Not Given DAILY ELDA Tiotropium [place] 1 puff 11/03/17 10:00 11/03/17 10:10 Spiriva - IH 1 puff DAILY ELDA Administration ASSESSMENT/PLAN: 67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 narrowing vs other pathology --doubt allergic reaction --Racemic epi again today due to stridor --Decadron now --ENT consulted for evaluation of vocal cords; laryngoscopy --No COPD exacerbation 2) Prolonged QTc --Discontinue Haldol --Initiate Zyprexa --Can use benzodiazepine, but only if need to for agitation refractory to zyprexa FEN: Fluids: Tolerating PO Electrolyte abnormalities: None Nutrition: Sodium controlled diet PPX: DVT - SCDs (prior h/o of ICH) Dispo: continue ICU monitoring with stridor; can probably transfer out once seen to be stable Case discussed with Dr. Colton Johnson, DO - IM PGY-1 Visit type - Emergency Visit Emergency Visit: No - New Patient This patient is new to me today: No - Critical Care Critical Care patient: Yes Total Critical Care Time (in minutes): 35 Critical Care Statement: The care of this patient involved high complexity decision making to prevent further life threatening deterioration of the patient 's condition and/or to evaluate & treat vital organ system(s) failure or risk of failure.
--- NOTE | 2017-11-03 13:26 | EKG ---
Test Reason : Blood Pressure : / mmHG Vent. Rate : 097 BPM Atrial Rate : 097 BPM P-R Int : 136 ms QRS Dur : 074 ms QT Int : 372 ms P-R-T Axes : 079 077 045 degrees QTc Int : 472 ms POOR DATA QUALITY, INTERPRETATION MAY BE ADVERSELY AFFECTED NORMAL SINUS RHYTHM NONSPECIFIC ST ABNORMALITY ABNORMAL ECG NO PREVIOUS ECGS AVAILABLE Confirmed by MD MACO, FÉLIX ([id number]) on 11/03/2017 1:25:43 PM Referred By: NURIA Confirmed By:FÉLIX DEWEY MD
--- NOTE | 2017-11-03 13:43 | PN ---
Teaching Attending Note Name of Resident: Bartolome Johnson ATTENDING PHYSICIAN STATEMENT I saw and evaluated the patient. I reviewed the resident's note and discussed the case with the resident. I agree with the resident's findings and plan as documented. SUBJECTIVE: No fever or chills, denies any pain or SOB. limited h/o due to decreased cognition. per sister in law, this is her base line mental status after the second ICH ( agitation and altered cognition) quit smoking 1 month ago OBJECTIVE: NAD, MMM, no JVD , awake , alert , flat affect . HEENT: normal oropharynx with nl uvula at mid line nl size tongue . stridor CV: RRR Lungs: CTAB Abd; soft, NT, ND , N L BS Ext: no edema or erythema. neuro : limited exam. no facial droop, EOMI, no facial droop. uvula and tongue at mid line. strength Nl shoulder shrug, abduction, triceps, hip flexion and kneee extension , ankle dorsiflexion and extension . 2+ knee jerk and biceps nl sensation to light touch ASSESSMENT AND PLAN: 67 y/o lady with h/o Amyloid angiopathy, s/p ICH x 2, with affected cognition. s/p prolonged intubation in [facility] s/p extubation 10/03/17. She presented with acute resp distress and was found to have Stridor 1- Acute resp distress : due to stridor ( vocal cord edema or dysfunction , or granulation tissue on cords) . cont to have stridor this am - give Racemic epi - Give decadrone x 3 today and reassess - ENT eval for laryngeoscopy ( refused as out pt ) - No evidence of acute COPD exacerbation . use Nebs if needed ( stopped smoking 1 month ago) - dc spiriva while on Duo-nebs 2- Cognitive impairment ;2/2 ICH x 2 . neuro exam was limited but non focal . - Try to avoid Haldol due to prolonged Qtc 3- DVT PX : SCDs due to h/o ICH x 2 Critical Care Total Critical Care Time (in minutes): 35 Critical Care Statement: The care of this patient involved high complexity decision making to prevent further life threatening deterioration of the patient 's condition and/or to evaluate & treat vital organ system(s) failure or risk of failure.
[2017-11-03] MEDS: DEXAMETHASONE 4 MG TABLET (FP) PO SCH ×2 (14:57→21:57)
[2017-11-03] MEDS ORDERED: NOREPINEPHRINE BITARTRATE 8,000 MCG in DEXTROSE 5%-WATER - 492 ML IV SCH (17:00)
[2017-11-03] MEDS ORDERED: ZOLPIDEM TARTRATE 5 MG TABLET PO ONE (21:41)
[2017-11-03] MEDS ORDERED: OLANZapine 5 MG TABLET PO SCH (22:00)
[2017-11-03] MEDS ORDERED: CHLORHEXIDINE GLUCONATE 4% CLEANSER FOR DECOLONIZATION TP SCH (22:00)
[2017-11-04 06:20] LABS: BASO % 0.3 % (0-2.0); HEMATOCRIT 42.2 % (32.4-45.2); HEMOGLOBIN 14.6 GM/dL (10.7-15.3); LYMPH % 5.9 % (8-40); MCH 32.1 pg (25.7-33.7); MCHC 34.7 g/dl (32.0-36.0); MEAN CELL VOLUME 92.6 fl (80-96); MEAN PLT VOLUME 8.3 fl (7.5-11.1); MONO % 2.5 % (3.8-10.2); NEUT % 91.3 % (42.8-82.8); PLATELET COUNT 275 K/MM3 (134-434); RBC 4.55 M/mm3 (3.60-5.2); RDW 14.5 % (11.6-15.6); WHITE BLOOD COUNT 7.7 K/mm3 (4.0-10.0)
[2017-11-04 06:43] LABS: ANION GAP 7 (8-16); BLOOD UREA NITROGEN 21 mg/dL (7-18); CALCIUM 9.2 mg/dL (8.5-10.1); CHLORIDE 106 mmol/L (98-107); CO2 27 mmol/L (21-32); CREATININE 0.7 mg/dL (0.55-1.02); GLUCOSE,RANDOM 98 mg/dL (74-106); POTASSIUM 3.8 mmol/L (3.5-5.1); SODIUM 140 mmol/L (136-145)
[2017-11-04 08:39] LABS: PLATELET ESTIMATE NORMAL
[2017-11-04] MEDS ORDERED: OLANZapine 5 MG TABLET PO ONE (08:47)
--- NOTE | 2017-11-04 09:19 | CON.ENT ---
Consult Consult Specialty:: ENT Reason for Consultation:: Stridor - History of Present Illness Chief Complaint: Respiratory Distress/Stridor History of Present Illness: 67 yo female with multiple medical problems who presents with recent respiratory difficulty and stridor. Pt doing better since hospital admission and subsequent medical therapy. Pt was recently in [facility] for an intracranial bleed with prolonged intubation. - History Source History Provided By: Family Member, Medical Record Limitations to Obtaining History: Clinical Condition - Past Medical History DRAFTER CIVIL (CAD): Yes: Other (cerebral amyloid angiopathy s/p multiple hemorrhagic bleeds) Cardio/Vascular: No: AFIB, Aneurysm, Aortic Insufficiency, Aortic Stenosis, CAD , CHF, Deep Vein Thrombosis, HTN, Hyperlipdemia, ID, Mitral Insufficiency, Mitral Stenosis, Murmur, Pulmonary Hypertension, Other Pulmonary: Yes: COPD (possible, unconfirmed) Gastrointestinal: No: Ascites, Cancer, Constipation, Crohn's Disease, Diverticulitis, Diverticulosis, Esophageal Varices, Gastritis, GERD, GI Bleed, Hemorrhoids, Hiatal Hernia, Inflamatory Bowel Disease, Irritable Bowel Disease, Pancreatitis, Peptic Ulcer Disease, Ulcerative Colitis, Other Hepatobiliary: No: Cirrhosis, Cholelithiasis, Cholecystitis, Choledocholithiasis , Hepatitis A, Hepatitis B, Hepatitis C, Other Renal/: No: Renal Failure, Renal Inusuff, BPH, Cancer, Hematuria, Hemodialysis , Neurogenic Bladder, Renal Calculi, UTI, Other ...: No Infectious Disease: No: AIDS, C-Diff, Herpes Zoster, HIV, MRSA, STD's, Tuberculosis, VREF, Other Psych: Yes: Other (agitation) Musculoskeletal: No: Bursitis, Chronic low back pain, Hemiparesis, Hemiplegia, Osteoarthritis, Paraplegia, Other Rheumatology: No: Fibromyalgia, Gout, Lupus, Rheumatoid Arthritis, Sarcoidosis, Vasculitis, Other ENT: No: Allergic Rhinitis, Sinusitis, Other Endocrine: No: Cody's Disease, Kvng's Disease, Diabetes Insipidus, Diabetes Mellitus, Hyperparathyroidism, Hyperthyroidism, Hypothyroidism, Osteopenia, SIADH, Other Dermatology: No: Basal Cell, Cellulitis, Eczema, Melanoma, Psoriasis, Squamous Cell, Other - Alcohol/Substance Use Hx Alcohol Use: No History of Substance Use: reports: None - Smoking History Smoking history: Former smoker Have you smoked in the past 12 months: Yes Aproximately how many cigarettes per day: 40 - Social History Usual Living Arrangement: With Spouse ADL: Independent History of Recent Travel: No Home Medications - Allergies Allergies/Adverse Reactions: Allergies Allergy/AdvReac Type Severity Reaction Status Date / Time aspirin Allergy Verified 11/02/17 10:51 clindamycin Allergy Verified 11/02/17 10:27 codeine Allergy Verified 11/02/17 10:27 cortisone Allergy Verified 11/02/17 10:27 NSAIDS (Non-Steroidal Allergy Verified 11/02/17 10:51 Anti-Inflamma prednisone Allergy Verified 11/02/17 10:27 Cortisone injection Allergy itching Uncoded 11/02/17 10:27 metal Allergy Uncoded 11/02/17 10:27 - Home Medications Home Medications: Ambulatory Orders Haloperidol [Haldol -] 2 mg PO BID 11/02/17 Zolpidem Tartrate [Ambien] 5 mg PO HS 11/02/17 Review of Systems - Review of Systems HENT: reports: Other (noisy breathing) Neurological: reports: Confusion, Pre-Existing Deficit Physical Exam-ENT Vital Signs: Vital Signs Temperature 98.2 F 11/04/17 06:00 Pulse Rate 64 11/04/17 06:00 Respiratory Rate 18 11/04/17 06:00 Blood Pressure 120/65 11/04/17 06:00 O2 Sat by Pulse Oximetry (%) 95 11/04/17 07:24 Constitutional: Yes: No Distress Head: Yes: Atraumatic Face: Yes: Symmetrical, No Sinus Tenderness Eyes: Yes: EOM Intact Nose: Yes: Pale, Septum Deviated Nasal Passage: Yes: Pale Oral/Pharynx: Yes: WNL Outer Ear: Yes: WNL Neck: Yes: Supple, Trachea Midline Respiratory: Yes: Other (normal rate, noisy breathing, no gross stridor) Psychiatric: Yes: Other Imaging - Results Chest X-ray: Report Reviewed Problem List - Problems (1) Acute respiratory insufficiency Assessment/Plan: PT with recent respiratory distress and noisy breathing which has improved since hospital admission, also s/p recent intubation. Laryngeal exam showed patent airway, no lesions, granuloma or significant edema noted. Mild signs of Laryngopharyngeal reflux- recommend starting on PPI 2x/day. Consider further pulmonary work-up for lower airway etiology. Code(s): R06.89 - OTHER ABNORMALITIES OF BREATHING Procedure Note Procedure: Fiberoptic laryngoscopy- sterile flexible scope obtained from [employer] and was present at bedside. ICU resident present to assist. Pt cooperative. Nose sprayed with topical anesthetic/decongestant. Scope passed intranasally, mild congestion noted. No infection. Nasopharynx,oropharynx and hypopharynx clear. No mass, purulence or significant airway edema noted. VCs mobile. Mild erytenoid erythema and edema. No granuloma. Subglottic area appeared normal.
[2017-11-04] MEDS: MUPIROCIN 2% TOPICAL OINTMENT FOR DECOLONIZATION NS SCH (09:30)
[2017-11-04] MEDS: NICOTINE 7 MG/24 HOURS TOPICAL PATCH TD SCH (10:31)
[2017-11-04] MEDS ORDERED: PANTOPRAZOLE 40 MG TABLET (FP) PO SCH (10:33)
--- NOTE | 2017-11-04 11:22 | PN ---
Teaching Attending Note Name of Resident: Bartolome Johnson ATTENDING PHYSICIAN STATEMENT I saw and evaluated the patient. I reviewed the resident's note and discussed the case with the resident. I agree with the resident's findings and plan as documented. SUBJECTIVE: Patient is sitting on the bed looks comfortable, with no acute distress, no fever or chills. OBJECTIVE: Vital Signs Temperature 98.2 F 11/04/17 06:00 Pulse Rate 66 11/04/17 09:15 Respiratory Rate 18 11/04/17 09:00 Blood Pressure 120/65 11/04/17 06:00 O2 Sat by Pulse Oximetry (%) 94 L 11/04/17 09:15 CBCD WBC 7.7 K/mm3 (4.0-10.0) D 11/04/17 05:30 RBC 4.55 M/mm3 (3.60-5.2) 11/04/17 05:30 Hgb 14.6 GM/dL (10.7-15.3) D 11/04/17 05:30 Hct 42.2 % (32.4-45.2) 11/04/17 05:30 MCV 92.6 fl (80-96) 11/04/17 05:30 MCHC 34.7 g/dl (32.0-36.0) 11/04/17 05:30 RDW 14.5 % (11.6-15.6) 11/04/17 05:30 Plt Count 275 K/MM3 (134-434) 11/04/17 05:30 MPV 8.3 fl (7.5-11.1) 11/04/17 05:30 CMP Sodium 140 mmol/L (136-145) 11/04/17 05:30 Potassium 3.8 mmol/L (3.5-5.1) 11/04/17 05:30 Chloride 106 mmol/L (98-107) 11/04/17 05:30 Carbon Dioxide 27 mmol/L (21-32) 11/04/17 05:30 Anion Gap 7 (8-16) L 11/04/17 05:30 BUN 21 mg/dL (7-18) H 11/04/17 05:30 Creatinine 0.7 mg/dL (0.55-1.02) 11/04/17 05:30 Creat Clearance w eGFR > 60 (>60) 11/03/17 05:45 Random Glucose 98 mg/dL (74-106) 11/04/17 05:30 Calcium 9.2 mg/dL (8.5-10.1) 11/04/17 05:30 Total Bilirubin 0.6 mg/dL (0.2-1.0) 11/03/17 05:45 AST 11 U/L (15-37) L 11/03/17 05:45 ALT 16 U/L (12-78) 11/03/17 05:45 Alkaline Phosphatase 76 U/L (45-117) 11/03/17 05:45 Total Protein 6.4 g/dl (6.4-8.2) 11/03/17 05:45 Albumin 3.4 g/dl (3.4-5.0) 11/03/17 05:45 CARDIAC ENZYMES Creatine Kinase 174 IU/L (26-192) 11/02/17 10:31 Troponin I 0.07 ng/ml (0.00-0.06) H 11/02/17 18:28 Current Medications Generic Name Dose Route Start Last Admin Trade Name Freq PRN Reason Stop Dose Admin Albuterol/Ipratropium 1 amp 11/02/17 22:54 Duoneb - NEB Q4H PRN SHORTNESS OF BREATH Chlorhexidine Gluconate 1 applic 11/03/17 22:00 11/03/17 21:58 Hibiclens For Decolonization - TP 1 applic HS ELDA Administration Mupirocin 1 applic 11/03/17 10:00 11/04/17 09:30 Bactroban Ointment (For Decolonization) - NS 11/08/17 09:59 1 applic BID ELDA Administration Nicotine 7 mg 11/03/17 10:00 11/04/17 10:31 Nicoderm Patch - TD 7 mg DAILY ELDA Administration Olanzapine 5 mg 11/03/17 22:00 11/03/17 21:58 Zyprexa - PO 5 mg HS ELDA Administration Pantoprazole Sodium 40 mg 11/04/17 10:33 11/04/17 11:10 Protonix - PO 40 mg BID ELDA Administration Home Medications Medication Instructions Recorded Haloperidol [Haldol -] 2 mg PO BID 11/02/17 Zolpidem Tartrate [Ambien] 5 mg PO HS 11/02/17 PE: per resident's note CHEST: No stridor. otherwise CTA Heart: S1S2 positive. Neuro: alert awake. ASSESSMENT AND PLAN: Patient is a 67 y/o female with h/o Amyloid angiopathy, s/p ICH x 2, with affected cognition. s/p prolonged intubation in [facility] s/p extubation 10/03/17. She presented with acute resp distress and was found to have Stridor # Acute resp distress : with mild stridor; given racemic epi and on decadron 4mg iv qid continue will discharge the patient in am. on Decadron continue , ENT seen the patient appreciated. use Nebs if needed ( stopped smoking 1 month ago) # Cognitive impairment ;2/2 ICH x 2 . neuro exam was limited . will repeat the ekg, Try to avoid Haldol due to prolonged Qtc , will repeate the EKG DVT PX : SCDs due to h/o ICH x 2
--- NOTE | 2017-11-04 12:59 | PN ---
Teaching Attending Note Name of Resident: Estuardo Biswas ATTENDING PHYSICIAN STATEMENT I saw and evaluated the patient. I reviewed the resident's note and discussed the case with the resident. I agree with the resident's findings and plan as documented. SUBJECTIVE: Pt seen and examined in the ICU. Breathing improving. Less stridor. No dysphagia. OBJECTIVE: Vital Signs Period Temp Pulse Resp BP Sys/Hall Pulse Ox Last 24 Hr 98.0 F-98.9 F 59-85 18-20 104-125/50-99 94-96 Intake & Output 11/01/17 11/02/17 11/03/17 11/04/17 23:59 23:59 23:59 23:59 Intake Total 50 450 50 Balance 50 450 50 Weight 63.004 kg Gen: NAD at rest Neck: +inspiratory stridor Heart: RRR Lung: decreased breath sounds at the bases Abd: soft, nontender Ext: no edema CBC, BMP 11/04/17 05:30 11/04/17 05:30 Active Medications Albuterol/Ipratropium (Duoneb -) 1 amp NEB Q4H PRN PRN Reason: SHORTNESS OF BREATH Chlorhexidine Gluconate (Hibiclens For Decolonization -) 1 applic TP HS [facility] Last Admin: 11/03/17 21:58 Dose: 1 applic Mupirocin (Bactroban Ointment (For Decolonization) -) 1 applic NS BID [facility] Stop: 11/08/17 09:59 Last Admin: 11/04/17 09:30 Dose: 1 applic Nicotine (Nicoderm Patch -) 7 mg TD DAILY [facility] Last Admin: 11/04/17 10:31 Dose: 7 mg Olanzapine (Zyprexa -) 5 mg PO HS [facility] Last Admin: 11/03/17 21:58 Dose: 5 mg Pantoprazole Sodium (Protonix -) 40 mg PO BID [facility] Last Admin: 11/04/17 11:10 Dose: 40 mg ASSESSMENT AND PLAN: Stridor improving h/o Intracranial Hemorrhages Dementia - continue decadron - inhaled bronchodilators - racemic epi as needed - ENT eval appreciated - CT neck and chest to r/o tracheal pathology - O2 as needed - DVT prophylaxis - can monitor on floor
[2017-11-04 13:03] VITALS: BMI 24.4
[2017-11-04] MEDS: DEXAMETHASONE SOD PHOSPHATE 4 MG/1 ML VIAL IVPUSH SCH ×2 (14:46→21:08)
[2017-11-04] MEDS: ALBUTEROL SO4 2.5/IPRATROPIUM 0.5 INH SOL 3 ML VIAL.NEB. NEB SCH ×3 (14:50→21:44)
--- NOTE | 2017-11-04 15:57 | PN ---
Physical Exam: SUBJECTIVE: Patient seen and examined. remained calm and cooperative during ENT exam combative with nursing during care, frequently attempting to get out of bed, unsteady gait. placed in ajay vest for closer monitoring and preventing harm. OBJECTIVE: Vital Signs Period Temp Pulse Resp BP Sys/Hall Pulse Ox Last 24 Hr 98 F-98.9 F 53-85 17-21 104-155/50-122 94-100 GENERAL: The patient is awake, alert, oriented to person, thinks this is [facility] in no acute distress. EYES: PERRL, extraocular movements intact, sclera anicteric, conjunctiva clear. ENT: nares patent, oropharynx clear without exudates, moist mucous membranes. no erythema, no thrush NECK: Trachea midline, full range of motion, supple. audible stridor - improved from yesterday. LUNGS: +wheezing, +rhonchi in b/l lungs HEART: Regular rate and rhythm, S1, S2 without murmur ABDOMEN: Soft, nontender, nondistended, normoactive bowel sounds EXTREMITIES: 2+ DP and radial pulses, warm, well-perfused, no edema. NEUROLOGICAL: Cranial nerves II through XII grossly intact. Normal speech. masked facies. PSYCH: at times aggressive with staff and combative SKIN: Warm, dry, normal turgor, no rashes or lesions note Laboratory Results - last 24 hr 11/04/17 11/04/17 05:30 05:30 WBC 7.7 D RBC 4.55 Hgb 14.6 D Hct 42.2 MCV 92.6 MCH 32.1 MCHC 34.7 RDW 14.5 Plt Count 275 MPV 8.3 Absolute Neuts (auto) 7.0 Neutrophils % 91.3 H Neutrophils % (Manual) 89.9 H Band Neutrophils % 0.0 Lymphocytes % 5.9 L D Lymphocytes % (Manual) 6.1 L Monocytes % 2.5 L Monocytes % (Manual) 4 Eosinophils % 0.0 Eosinophils % (Manual) 0.0 Basophils % 0.3 Basophils % (Manual) 0.0 Myelocytes % (Man) 0 Promyelocytes % (Man) 0 Blast Cells % (Manual) 0 Nucleated RBC % 0 Metamyelocytes 0 Platelet Estimate Normal Sodium 140 Potassium 3.8 Chloride 106 Carbon Dioxide 27 Anion Gap 7 L BUN 21 H Creatinine 0.7 Random Glucose 98 Calcium 9.2 Active Medications Generic Name Dose Route Start Last Admin Trade Name Key PRN Reason Stop Dose Admin Albuterol/Ipratropium 1 amp 11/04/17 14:00 Duoneb - NEB Q4HWA ELDA Chlorhexidine Gluconate 1 applic 11/03/17 22:00 11/03/17 21:58 Hibiclens For Decolonization - TP 1 applic HS ELDA Administration Dexamethasone Sodium Phosphate 4 mg 11/04/17 15:00 11/04/17 14:46 Decadron Injection - IVPUSH 4 mg Q6H-IV ELDA Administration Mupirocin 1 applic 11/03/17 10:00 11/04/17 09:30 Bactroban Ointment (For Decolonization) - NS 11/08/17 09:59 1 applic BID ELDA Administration Nicotine 7 mg 11/03/17 10:00 11/04/17 10:31 Nicoderm Patch - TD 7 mg DAILY ELDA Administration Olanzapine 5 mg 11/03/17 22:00 11/03/17 21:58 Zyprexa - PO 5 mg HS ELDA Administration Pantoprazole Sodium 40 mg 11/04/17 10:33 11/04/17 11:10 Protonix - PO 40 mg BID ELDA Administration ASSESSMENT/PLAN: 67 yr old woman with hx of smoking, amyloid angiopathy, hx of multiple ICHs, since age 15 1-2pks/daily quit 1 month ago after 30-day neuroICU stay at [facility] for acute ICH was brought in by family for SOB. In ICU for monitoring of stridor. - Respiratory - improved -- continue decadron 4mg q6hr -- started on protonix BID for GI prophylaxis and tx for GERD if cause of stridor -- duonebs q4hr elda -- ENT consultation with Dr. fish, upper airway is clear, vocal cords with mild edema/erythema. --- stridor likely originating from beyond chords, r.o GERD, further evaluation with neck and chest CT without contrast -- currently protecting airway and comfortable on RA -- smoking cessation - pt has been abstinent since August(from time of her ICH), offered nicotine patch, pt accepted - Cardiovascular - troponemia - trended down, no acute EKG changes. echo without acute pathology - repeat EKG to check Qtc - Prophylaxis - SCD's while in Bed, hold off on medical AC due to recent ICH - Neurological/Psych -- hold home haldol 2mg po bid due to prolonged Qtc, use zyprexa 5mg instead - Diet: regular, pt tolerating - will need physical therapy once stable for deconditioning - stable for med-surg monitoring #GOC, discussed with [id number] at bedside, updated on ENT results. Visit type - Emergency Visit Emergency Visit: No - New Patient This patient is new to me today: No - Critical Care Critical Care patient: Yes Total Critical Care Time (in minutes): 37 Critical Care Statement: The care of this patient involved high complexity decision making to prevent further life threatening deterioration of the patient 's condition and/or to evaluate & treat vital organ system(s) failure or risk of failure.
--- NOTE | 2017-11-04 18:25 | PN ---
Physical Exam: SUBJECTIVE: Pt pleasantly confused today. Pt this morning was overly active trying to climb out of bed and shouting obscenities. One-time Zyprexa 5mg dose was given this AM and ajay was placed. Pt to receive laryngoscopy today. Pt otherwise feels "okay" with no problems with breathing or swallowing. Pt denies any pain at this point. OBJECTIVE: Vital Signs Period Temp Pulse Resp BP Sys/Hall Pulse Ox Last 24 Hr 98 F-98.9 F 53-84 17-21 104-155/54-122 94-100 GENERAL: Elderly woman, A&Ox2 (oriented to person and place, not date), in no acute distress HEENT: EOMI, LISA, moist mucosa, no edema of the oropharynx noted NECK: No notable peritracheal edema. Minimal stridor with auscultation. No masses palpated, No JVD LUNGS: Decreased breath sounds at bases. No wheezes, and no crackles. No accessory muscle use. HEART: RRR, normal S1 and S2 without murmur ABDOMEN: Soft, NT, ND, normoactive bowel sounds, no guarding, No hepatomegaly EXTREMITIES: 2+ DP pulses, No peripheral edema. PSYCHIATRIC: Slow mentation notable for thought blocking and tangential speech. Flat affect SKIN: Warm, dry, no rashes or lesions noted Laboratory Results - last 24 hr 11/04/17 11/04/17 05:30 05:30 WBC 7.7 D RBC 4.55 Hgb 14.6 D Hct 42.2 MCV 92.6 MCH 32.1 MCHC 34.7 RDW 14.5 Plt Count 275 MPV 8.3 Absolute Neuts (auto) 7.0 Neutrophils % 91.3 H Neutrophils % (Manual) 89.9 H Band Neutrophils % 0.0 Lymphocytes % 5.9 L D Lymphocytes % (Manual) 6.1 L Monocytes % 2.5 L Monocytes % (Manual) 4 Eosinophils % 0.0 Eosinophils % (Manual) 0.0 Basophils % 0.3 Basophils % (Manual) 0.0 Myelocytes % (Man) 0 Promyelocytes % (Man) 0 Blast Cells % (Manual) 0 Nucleated RBC % 0 Metamyelocytes 0 Platelet Estimate Normal Sodium 140 Potassium 3.8 Chloride 106 Carbon Dioxide 27 Anion Gap 7 L BUN 21 H Creatinine 0.7 Random Glucose 98 Calcium 9.2 Active Medications Generic Name Dose Route Start Last Admin Trade Name Freq PRN Reason Stop Dose Admin Albuterol/Ipratropium 1 amp 11/04/17 14:00 Duoneb - NEB Q4HWA [facility] Chlorhexidine Gluconate 1 applic 11/04/17 22:00 Hibiclens For Decolonization - TP HS [facility] Dexamethasone Sodium Phosphate 4 mg 11/04/17 15:00 11/04/17 14:46 Decadron Injection - IVPUSH 4 mg Q6H-IV [facility] Administration Mupirocin 1 applic 11/04/17 22:00 Bactroban Ointment (For Decolonization) - NS 11/08/17 09:59 BID [facility] Nicotine 7 mg 11/05/17 10:00 Nicoderm Patch - TD DAILY [facility] Olanzapine 5 mg 11/04/17 22:00 Zyprexa - PO HS [facility] Pantoprazole Sodium 40 mg 11/04/17 22:00 Protonix - PO BID [facility] ASSESSMENT/PLAN: 67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 narrowing vs other pathology --Decadron 4mg q6h IV for stridor; upon discharge will need prednisone taper --No COPD exacerbation 2) Prolonged QTc --Attending discussed with family about reason for discontinuation of Haldol --Will repeat EKG and if QTc assessment is normal will reinitiate Haldol at home dose --Initiate Zyprexa 5mg PO HS --Extra dose given today FEN: Fluids: Tolerating PO Electrolyte abnormalities: None Nutrition: Sodium controlled diet PPX: DVT - SCDs (prior h/o of ICH) Dispo: Transfer; rpt EKG Case discussed with Dr. Reynold Johnson, DO - IM PGY-1 Visit type - Emergency Visit Emergency Visit: No - New Patient This patient is new to me today: No - Critical Care Critical Care patient: No
[2017-11-04] MEDS ORDERED: ZOLPIDEM TARTRATE 5 MG TABLET PO ONE (20:07)
[2017-11-04] MEDS: PANTOPRAZOLE 40 MG TABLET (FP) PO SCH (21:08)
[2017-11-04] MEDS ORDERED: OLANZapine 10 MG TABLET PO SCH (22:00)
[2017-11-04] MEDS ORDERED: CHLORHEXIDINE GLUCONATE 4% CLEANSER FOR DECOLONIZATION TP SCH (22:00)
[2017-11-04] MEDS ORDERED: MUPIROCIN 2% TOPICAL OINTMENT FOR DECOLONIZATION NS SCH (22:00)
[2017-11-05] MEDS: DEXAMETHASONE SOD PHOSPHATE 4 MG/1 ML VIAL IVPUSH SCH ×4 (02:02→21:25)
[2017-11-05] MEDS ORDERED: ALBUTEROL SO4 2.5/IPRATROPIUM 0.5 INH SOL 3 ML VIAL.NEB. NEB ONE (02:18)
[2017-11-05] MEDS: ALBUTEROL SO4 2.5/IPRATROPIUM 0.5 INH SOL 3 ML VIAL.NEB. NEB SCH ×5 (07:00→21:55)
[2017-11-05] MEDS: NICOTINE 7 MG/24 HOURS TOPICAL PATCH TD SCH (10:08)
[2017-11-05] MEDS: PANTOPRAZOLE 40 MG TABLET (FP) PO SCH (10:08)
[2017-11-05] MEDS ORDERED: HALOPERIDOL 1 MG TABLET (FP) PO PRN (10:50)
--- NOTE | 2017-11-05 11:11 | PN ---
Progress Note (short form) - Note Progress Note: PULMONARY Seen right after ambulating with physical therapy still with stridor. RN states she was better before she ambulated. CT neck showing bilateral aryepiglottic swelling. Last Vital Signs Temp Pulse Resp BP Pulse Ox 97.8 F 87 20 136/73 95 11/05/17 10:00 11/05/17 10:00 11/05/17 10:00 11/05/17 10:00 11/04/17 21:00 Gen: mildly tachypneic at rest Neck: +stridor Heart: RRR Lung: decreased breath sounds at the bases Abd: soft, nontender Ext: no edema CBC, BMP 11/04/17 05:30 11/04/17 05:30 Active Medications Albuterol/Ipratropium (Duoneb -) 1 amp NEB Q4HWA [facility] Last Admin: 11/05/17 09:42 Dose: 1 amp Dexamethasone Sodium Phosphate (Decadron Injection -) 4 mg IVPUSH Q6H-IV [facility] Last Admin: 11/05/17 10:08 Dose: 4 mg Haloperidol (Haldol -) 1 mg PO BID PRN PRN Reason: AGITATION Nicotine (Nicoderm Patch -) 7 mg TD DAILY [facility] Last Admin: 11/05/17 10:08 Dose: 7 mg Pantoprazole Sodium (Protonix -) 40 mg PO BID [facility] Last Admin: 11/05/17 10:08 Dose: 40 mg A/P Stridor improving h/o Intracranial Hemorrhages Dementia - continue decadron - inhaled bronchodilators - racemic epi as needed - O2 as needed - DVT prophylaxis
--- NOTE | 2017-11-05 11:26 | EKG ---
Test Reason : Blood Pressure : / mmHG Vent. Rate : 061 BPM Atrial Rate : 061 BPM P-R Int : 132 ms QRS Dur : 080 ms QT Int : 454 ms P-R-T Axes : 077 084 057 degrees QTc Int : 457 ms NORMAL SINUS RHYTHM NORMAL ECG WHEN COMPARED WITH ECG OF 02-NOV-2017 11:01, VENT. RATE HAS DECREASED BY 36 BPM [address]-SPECIFIC CHANGE IN [address] SEGMENT IN INFERIOR LEADS NONSPECIFIC T WAVE ABNORMALITY NOW EVIDENT IN ANTERIOR LEADS Confirmed by BLAYNE DESAI MD ([id number]) on 11/05/2017 11:26:26 AM Referred By: MARIE CHINCHILLA Confirmed By:BLAYNE DESAI MD
[2017-11-05] MEDS ORDERED: HALOPERIDOL 1 MG TABLET (FP) PO ONE (13:00)
[2017-11-05] MEDS ORDERED: HALOPERIDOL LACTATE 5 MG/ML IM ONE (14:03)
--- NOTE | 2017-11-05 18:13 | PN ---
<ElizabethBartolome - Last Filed: 11/05/17 18:13> Physical Exam: SUBJECTIVE: No events overnight. Pt remains with ajay currently. No difficulties with breathing, no dysphagia, no odynophagia noted by pt. OBJECTIVE: Vital Signs Period Temp Pulse Resp BP Sys/Hall Pulse Ox Last 24 Hr 97.6 F-200 F 53-98 18-20 103-140/63-84 95-95 GENERAL: Elderly woman, A&Ox2 (oriented to person and place, not date), in no acute distress HEENT: EOMI, LISA, moist mucosa, no edema of the oropharynx noted NECK: No notable peritracheal edema. Minimal stridor with auscultation. No masses palpated, No JVD LUNGS: Decreased breath sounds at bases. No wheezes, and no crackles. No accessory muscle use. HEART: RRR, normal S1 and S2 without murmur ABDOMEN: Soft, NT, ND, normoactive bowel sounds, no guarding, No hepatomegaly EXTREMITIES: 2+ DP pulses, No peripheral edema. PSYCHIATRIC: Slow mentation notable for thought blocking and tangential speech. Flat affect SKIN: Warm, dry, no rashes or lesions noted Active Medications Generic Name Dose Route Start Last Admin Trade Name Freq PRN Reason Stop Dose Admin Albuterol/Ipratropium 1 amp 11/04/17 14:00 11/05/17 17:33 Duoneb - NEB 1 amp Q4HWA [facility] Administration Dexamethasone Sodium Phosphate 8 mg 11/05/17 15:00 11/05/17 14:21 Decadron Injection - IVPUSH 8 mg Q6H-IV [facility] Administration Haloperidol 2 mg 11/05/17 22:00 Haldol - PO BID [facility] Nicotine 7 mg 11/05/17 10:00 11/05/17 10:08 Nicoderm Patch - TD 7 mg DAILY [facility] Administration Pantoprazole Sodium 40 mg 11/04/17 22:00 11/05/17 10:08 Protonix - PO 40 mg BID [facility] Administration ASSESSMENT/PLAN: 67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 Reynold Johnson, DO - IM PGY-1 Visit type - Emergency Visit Emergency Visit: No - New Patient This patient is new to me today: No - Critical Care Critical Care patient: No <Jose Manuel Flaherty - Last Filed: 11/05/17 19:34> Physical Exam: Discussed with the family member, patient is on Haldol at 2mg po bid, for mood and agitation control. EKG was done witj qt of 457, will continue Haldol as scheduled at home. once stable will discharge the patient home.
[2017-11-06] MEDS: HALOPERIDOL 1 MG TABLET (FP) PO SCH ×3 (02:17→21:13)
[2017-11-06] MEDS: PANTOPRAZOLE 40 MG TABLET (FP) PO SCH ×3 (02:17→21:13)
[2017-11-06] MEDS: DEXAMETHASONE SOD PHOSPHATE 4 MG/1 ML VIAL IVPUSH SCH ×2 (02:19→10:30)
[2017-11-06] MEDS: ALBUTEROL SO4 2.5/IPRATROPIUM 0.5 INH SOL 3 ML VIAL.NEB. NEB SCH ×5 (05:45→21:30)
[2017-11-06] MEDS ORDERED: DEXAMETHASONE SOD PHOSPHATE 4 MG/1 ML VIAL IVPUSH SCH (09:40)
[2017-11-06] MEDS ORDERED: PT OWN MED DRAWER 7, Y5N ONE (10:25)
[2017-11-06] MEDS: NICOTINE 7 MG/24 HOURS TOPICAL PATCH TD SCH (10:31)
[2017-11-06] MEDS: DEXAMETHASONE 4 MG TABLET (FP) PO SCH ×3 (11:09→23:07)
--- NOTE | 2017-11-06 11:33 | PN ---
Progress Note (short form) - Note Progress Note: PULMONARY AWAKE/NURSE PRESENT MODERATE DEMENTIA PRESENTS ADEQUATE REVIEW OF SYSTEMS VSS mild stridor present Heart: RRR Lung: decreased breath sounds at the bases Abd: soft, nontender Ext: no edema labs/meds/notes/images reviewed ENT consult/laryngoscopy reviewed A/P Stridor improving h/o Intracranial Hemorrhages Dementia - continue decadron - inhaled bronchodilators - racemic epi as needed - O2 as needed - DVT prophylaxis Cynthia CASTRO MD
--- NOTE | 2017-11-06 15:26 | PN ---
Teaching Attending Note Name of Resident: Bartolome Johnson ATTENDING PHYSICIAN STATEMENT I saw and evaluated the patient. I reviewed the resident's note and discussed the case with the resident. I agree with the resident's findings and plan as documented. SUBJECTIVE: Patient is better today. OBJECTIVE: Vital Signs Temperature 97.5 F L 11/06/17 05:57 Pulse Rate 77 11/06/17 13:56 Respiratory Rate 20 11/06/17 13:56 Blood Pressure 113/60 11/06/17 13:56 O2 Sat by Pulse Oximetry (%) 97 11/06/17 14:14 CBCD WBC 7.7 K/mm3 (4.0-10.0) D 11/04/17 05:30 RBC 4.55 M/mm3 (3.60-5.2) 11/04/17 05:30 Hgb 14.6 GM/dL (10.7-15.3) D 11/04/17 05:30 Hct 42.2 % (32.4-45.2) 11/04/17 05:30 MCV 92.6 fl (80-96) 11/04/17 05:30 MCHC 34.7 g/dl (32.0-36.0) 11/04/17 05:30 RDW 14.5 % (11.6-15.6) 11/04/17 05:30 Plt Count 275 K/MM3 (134-434) 11/04/17 05:30 MPV 8.3 fl (7.5-11.1) 11/04/17 05:30 CMP Sodium 140 mmol/L (136-145) 11/04/17 05:30 Potassium 3.8 mmol/L (3.5-5.1) 11/04/17 05:30 Chloride 106 mmol/L (98-107) 11/04/17 05:30 Carbon Dioxide 27 mmol/L (21-32) 11/04/17 05:30 Anion Gap 7 (8-16) L 11/04/17 05:30 BUN 21 mg/dL (7-18) H 11/04/17 05:30 Creatinine 0.7 mg/dL (0.55-1.02) 11/04/17 05:30 Creat Clearance w eGFR > 60 (>60) 11/03/17 05:45 Random Glucose 98 mg/dL (74-106) 11/04/17 05:30 Calcium 9.2 mg/dL (8.5-10.1) 11/04/17 05:30 Total Bilirubin 0.6 mg/dL (0.2-1.0) 11/03/17 05:45 AST 11 U/L (15-37) L 11/03/17 05:45 ALT 16 U/L (12-78) 11/03/17 05:45 Alkaline Phosphatase 76 U/L (45-117) 11/03/17 05:45 Total Protein 6.4 g/dl (6.4-8.2) 11/03/17 05:45 Albumin 3.4 g/dl (3.4-5.0) 11/03/17 05:45 CARDIAC ENZYMES Creatine Kinase 174 IU/L (26-192) 11/02/17 10:31 Troponin I 0.07 ng/ml (0.00-0.06) H 11/02/17 18:28 Current Medications Generic Name Dose Route Start Last Admin Trade Name Zechariahq PRN Reason Stop Dose Admin Albuterol/Ipratropium 1 amp 11/04/17 14:00 11/06/17 14:25 Duoneb - NEB 1 amp Q4HWA [facility] Administration Dexamethasone 4 mg 11/06/17 12:00 11/06/17 11:09 Decadron - PO 4 mg Q6HPO [facility] Administration Haloperidol 2 mg 11/05/17 22:00 11/06/17 10:30 Haldol - PO 2 mg BID [facility] Administration Nicotine 7 mg 11/05/17 10:00 11/06/17 10:31 Nicoderm Patch - TD 7 mg DAILY [facility] Administration Pantoprazole Sodium 40 mg 11/04/17 22:00 11/06/17 10:31 Protonix - PO 40 mg BID [facility] Administration PE: per resident's note CHEST: No stridor. otherwise CTA Heart: S1S2 positive. Neuro: alert awake. ASSESSMENT AND PLAN: Patient is a 67 y/o female with h/o Amyloid angiopathy, s/p ICH x 2, with affected cognition. s/p prolonged intubation in [facility] s/p extubation 10/03/17. She presented with acute resp distress and was found to have Stridor # Acute resp distress : with mild stridor; given racemic epi and will switch to po decadron 4mg q6h, upon discharge will discharge the on medrol dose pack , ENT seen the patient appreciated. use Nebs if needed ( stopped smoking 1 month ago). added Protonix 40mg po Bid. # Cognitive impairment , QT is within NL limit now, will restart the Haldol back 2mg po bid DVT PX : SCDs due to h/o ICH x 2
[2017-11-07] MEDS: DEXAMETHASONE 4 MG TABLET (FP) PO SCH ×4 (06:10→23:24)
[2017-11-07] MEDS: ALBUTEROL SO4 2.5/IPRATROPIUM 0.5 INH SOL 3 ML VIAL.NEB. NEB SCH ×5 (06:31→21:29)
[2017-11-07 08:27] LABS: CHLORIDE 106 mmol/L (98-107); POTASSIUM 4.2 mmol/L (3.5-5.1); SODIUM 141 mmol/L (136-145)
[2017-11-07 08:43] LABS: ANION GAP 9 (8-16); BLOOD UREA NITROGEN 35 mg/dL (7-18); CALCIUM 8.8 mg/dL (8.5-10.1); CO2 26 mmol/L (21-32); CREATININE 0.7 mg/dL (0.55-1.02); GLUCOSE,RANDOM 111 mg/dL (74-106)
[2017-11-07] MEDS: HALOPERIDOL 1 MG TABLET (FP) PO SCH ×2 (09:01→21:01)
[2017-11-07] MEDS: PANTOPRAZOLE 40 MG TABLET (FP) PO SCH ×2 (09:01→21:01)
[2017-11-07] MEDS: NICOTINE 7 MG/24 HOURS TOPICAL PATCH TD SCH (09:01)
--- NOTE | 2017-11-07 10:47 | PN ---
Progress Note (short form) - Note Progress Note: Resting in NAD on NC O2. Confused. at the bedside. Stridor appreciated, but less. No acute events documented overnight. Intake & Output 11/04/17 11/05/17 11/06/17 11/07/17 23:59 23:59 23:59 23:59 Intake Total 605 181 7821 50 Balance 230 500 7155 50 Weight 138 lb Last Vital Signs Temp Pulse Resp BP Pulse Ox 98.0 F 83 20 133/73 97 11/07/17 08:13 11/07/17 08:13 11/07/17 08:13 11/07/17 08:13 11/06/17 20:59 Active Medications Albuterol/Ipratropium (Duoneb -) 1 amp NEB Q4HWA [facility] Last Admin: 11/07/17 09:40 Dose: 1 amp Dexamethasone (Decadron -) 4 mg PO Q6HPO [facility] Last Admin: 11/07/17 06:10 Dose: 4 mg Haloperidol (Haldol -) 2 mg PO BID [facility] Last Admin: 11/07/17 09:01 Dose: 2 mg Nicotine (Nicoderm Patch -) 7 mg TD DAILY [facility] Last Admin: 11/07/17 09:01 Dose: 7 mg Pantoprazole Sodium (Protonix -) 40 mg PO BID [facility] Last Admin: 11/07/17 09:01 Dose: 40 mg Gen: NAD Neck: Less stridor Heart: RRR Lung: decreased breath sounds at the bases Abd: soft, nontender Ext: no edema Laboratory Results - last 24 hr 11/07/17 06:26 Sodium 141 Potassium 4.2 Chloride 106 Carbon Dioxide 26 Anion Gap 9 BUN 35 H Creatinine 0.7 Random Glucose 111 H Calcium 8.8 A/P Stridor improving h/o Intracranial Hemorrhages Dementia - PO decadron - inhaled bronchodilators - O2 as needed - DVT prophylaxis Dr Woodson
--- NOTE | 2017-11-07 19:21 | PN ---
Progress Note (short form) - Note Progress Note: Patient is better today less agitated and less confused. Continues to have Stridor Vital Signs Temperature 98 F 11/07/17 18:00 Pulse Rate 64 11/07/17 18:00 Respiratory Rate 20 11/07/17 18:00 Blood Pressure 137/74 11/07/17 18:00 O2 Sat by Pulse Oximetry (%) 93 L 11/07/17 18:02 GENERAL: Elderly woman, oriented to person and place, not date, in no acute distress. HEENT: EOMI, LISA, moist mucosa, no edema of the oropharynx noted NECK: No notable peritracheal edema. stridor improving . No masses palpated, No JVD LUNGS: Decreased breath sounds at bases. No wheezes, and no crackles. No accessory muscle use. HEART: RRR, normal S1 and S2 without murmur ABDOMEN: Soft, NT, ND, normoactive bowel sounds, no guarding, No hepatomegaly EXTREMITIES: 2+ DP pulses, No peripheral edema. PSYCHIATRIC: patient is calmer SKIN: Warm, dry, no rashes or lesions noted CBCD WBC 7.7 K/mm3 (4.0-10.0) D 11/04/17 05:30 RBC 4.55 M/mm3 (3.60-5.2) 11/04/17 05:30 Hgb 14.6 GM/dL (10.7-15.3) D 11/04/17 05:30 Hct 42.2 % (32.4-45.2) 11/04/17 05:30 MCV 92.6 fl (80-96) 11/04/17 05:30 MCHC 34.7 g/dl (32.0-36.0) 11/04/17 05:30 RDW 14.5 % (11.6-15.6) 11/04/17 05:30 Plt Count 275 K/MM3 (134-434) 11/04/17 05:30 MPV 8.3 fl (7.5-11.1) 11/04/17 05:30 CMP Sodium 141 mmol/L (136-145) 11/07/17 06:26 Potassium 4.2 mmol/L (3.5-5.1) 11/07/17 06:26 Chloride 106 mmol/L (98-107) 11/07/17 06:26 Carbon Dioxide 26 mmol/L (21-32) 11/07/17 06:26 Anion Gap 9 (8-16) 11/07/17 06:26 BUN 35 mg/dL (7-18) H 11/07/17 06:26 Creatinine 0.7 mg/dL (0.55-1.02) 11/07/17 06:26 Creat Clearance w eGFR > 60 (>60) 11/03/17 05:45 Random Glucose 111 mg/dL (74-106) H 11/07/17 06:26 Calcium 8.8 mg/dL (8.5-10.1) 11/07/17 06:26 Total Bilirubin 0.6 mg/dL (0.2-1.0) 11/03/17 05:45 AST 11 U/L (15-37) L 11/03/17 05:45 ALT 16 U/L (12-78) 11/03/17 05:45 Alkaline Phosphatase 76 U/L (45-117) 11/03/17 05:45 Total Protein 6.4 g/dl (6.4-8.2) 11/03/17 05:45 Albumin 3.4 g/dl (3.4-5.0) 11/03/17 05:45 CARDIAC ENZYMES Creatine Kinase 174 IU/L (26-192) 11/02/17 10:31 Troponin I 0.07 ng/ml (0.00-0.06) H 11/02/17 18:28 Current Medications Generic Name Dose Route Start Last Admin Trade Name Freq PRN Reason Stop Dose Admin Albuterol/Ipratropium 1 amp 11/04/17 14:00 11/07/17 18:10 Duoneb - NEB 1 amp Q4HWA [facility] Administration Dexamethasone 4 mg 11/06/17 12:00 11/07/17 17:29 Decadron - PO 4 mg Q6HPO [facility] Administration Haloperidol 2 mg 11/05/17 22:00 11/07/17 09:01 Haldol - PO 2 mg BID [facility] Administration Nicotine 7 mg 11/05/17 10:00 11/07/17 09:01 Nicoderm Patch - TD 7 mg DAILY [facility] Administration Pantoprazole Sodium 40 mg 11/04/17 22:00 11/07/17 09:01 Protonix - PO 40 mg BID [facility] Administration Home Medications Medication Instructions Recorded Haloperidol [Haldol -] 2 mg PO BID 11/02/17 Zolpidem Tartrate [Ambien] 5 mg PO HS 11/02/17 a/P: Patient is a 67 y/o female with h/o Amyloid angiopathy, s/p ICH x 2, with affected cognition. s/p prolonged intubation in [facility] s/p extubation 10/03/17. She presented with acute resp distress and was found to have Stridor # Acute resp distress : with mild stridor continues as per pulmonary to continue Decadron IV 8mg q8h ; given racemic epi, upon discharge will discharge the on medrol dose pack , ENT seen the patient appreciated. use Nebs if needed ( stopped smoking 1 month ago). added Protonix 40mg po Bid. # Cognitive impairment , QT is within NL limit now, continue Haldol 2mg po bid DVT PX : SCDs due to h/o ICH x 2 Visit type - Emergency Visit Emergency Visit: Yes ED Registration Date: 11/02/17 Care time: The patient presented to the Emergency Department on the above date and was hospitalized for further evaluation of their emergent condition. - New Patient This patient is new to me today: No - Critical Care Critical Care patient: No - Discharge Referral Referred to [facility] Med P.C.: No
[2017-11-07] MEDS ORDERED: PT OWN MED DRAWER 7, Y5N ONE (19:48)
[2017-11-08] MEDS: DEXAMETHASONE 4 MG TABLET (FP) PO SCH (06:05)
[2017-11-08] MEDS: ALBUTEROL SO4 2.5/IPRATROPIUM 0.5 INH SOL 3 ML VIAL.NEB. NEB SCH ×2 (06:08→09:36)
[2017-11-08] MEDS: PANTOPRAZOLE 40 MG TABLET (FP) PO SCH ×2 (09:45→22:17)
[2017-11-08] MEDS: HALOPERIDOL 1 MG TABLET (FP) PO SCH ×2 (09:45→22:16)
[2017-11-08] MEDS: NICOTINE 7 MG/24 HOURS TOPICAL PATCH TD SCH (09:45)
[2017-11-08] MEDS: DEXAMETHASONE SOD PHOSPHATE 10 MG/1 ML VIAL IVPUSH SCH ×2 (11:14→18:03)
--- NOTE | 2017-11-08 11:35 | PN ---
Progress Note (short form) - Note Progress Note: NAD on RA. Remains mildly confused, says she is going home. Stridor appreciated, but seems improved today. No acute events documented overnight. Intake & Output 11/05/17 11/06/17 11/07/17 11/08/17 23:59 23:59 23:59 23:59 Intake Total 520 1037 800 50 Balance 520 1037 800 50 Last Vital Signs Temp Pulse Resp BP Pulse Ox 98.7 F 81 20 123/67 93 L 11/08/17 08:00 11/08/17 08:00 11/08/17 08:00 11/08/17 08:00 11/08/17 09:00 Active Medications Albuterol/Ipratropium (Duoneb -) 1 amp NEB Q4HWA [facility] Last Admin: 11/08/17 09:36 Dose: 1 amp Dexamethasone Sodium Phosphate (Decadron Injection -) 8 mg IVPUSH Q8H-IV [facility] Last Admin: 11/08/17 11:14 Dose: 8 mg Haloperidol (Haldol -) 2 mg PO BID [facility] Last Admin: 11/08/17 09:45 Dose: 2 mg Nicotine (Nicoderm Patch -) 7 mg TD DAILY [facility] Last Admin: 11/08/17 09:45 Dose: 7 mg Pantoprazole Sodium (Protonix -) 40 mg PO BID [facility] Last Admin: 11/08/17 09:45 Dose: 40 mg Gen: NAD Neck: Less stridor Heart: RRR Lung: decreased breath sounds at the bases Abd: soft, nontender Ext: no edema A/P Stridor improving h/o Intracranial Hemorrhages Dementia - Decadron - inhaled bronchodilators - O2 as needed - DVT prophylaxis Dr Woodson
--- NOTE | 2017-11-08 13:54 | PN ---
<ElizabethBartolome - Last Filed: 11/08/17 13:55> Physical Exam: SUBJECTIVE: Pt remains confused, however without any agitation last night. Been off ajay for >24h. Pt is alert and oriented to self and place. OBJECTIVE: Vital Signs Period Temp Pulse Resp BP Sys/Hall Pulse Ox Last 24 Hr 97.5 F-98.7 F 64-81 18-20 109-137/52-77 93-93 GENERAL: Elderly woman, A&Ox2 (oriented to person and place, not date), in no acute distress, sitting at bedside about to eat HEENT: EOMI, LISA, moist mucosa, no edema of the oropharynx noted NECK: No notable peritracheal edema. Improved stridor noted. No masses palpated , No JVD LUNGS: Decreased breath sounds at bases. No wheezes, and no crackles. No accessory muscle use. HEART: RRR, normal S1 and S2 without murmur ABDOMEN: Soft, NT, ND, normoactive bowel sounds, no guarding, No hepatomegaly EXTREMITIES: 2+ DP pulses, No peripheral edema. PSYCHIATRIC: Flat affect SKIN: Warm, dry, no rashes or lesions noted Active Medications Generic Name Dose Route Start Last Admin Trade Name Freq PRN Reason Stop Dose Admin Albuterol/Ipratropium 1 amp 11/04/17 14:00 11/08/17 09:36 Duoneb - NEB 1 amp Q4HWA [facility] Administration Dexamethasone Sodium Phosphate 8 mg 11/08/17 10:00 11/08/17 11:14 Decadron Injection - IVPUSH 8 mg Q8H-IV [facility] Administration Haloperidol 2 mg 11/05/17 22:00 11/08/17 09:45 Haldol - PO 2 mg BID [facility] Administration Nicotine 7 mg 11/05/17 10:00 11/08/17 09:45 Nicoderm Patch - TD 7 mg DAILY [facility] Administration Pantoprazole Sodium 40 mg 11/04/17 22:00 11/08/17 09:45 Protonix - PO 40 mg BID [facility] Administration ASSESSMENT/PLAN: 67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), residual cognitive deficits found to have respiratory distress and stridor 1) Acute respiratory distress --2/2 to stridor --Laryngoscopy performed without abnormality to anatomical structures noted --Decadron 8mg q8h IV for stridor --Stridor improving; will need to d/c with medrol dose pack --No COPD exacerbation 2) Prolonged QTc --Rpt EKG showing resolving normality of QTc while off of Haldol --Discontinue Zyprexa --Continue Haldol 2mg BID FEN: Fluids: Tolerating PO Electrolyte abnormalities: None Nutrition: Sodium controlled diet PPX: DVT - SCDs (prior h/o of ICH) Dispo: Continue to monitor stridor; d/c planning Case discussed with Dr. Reynold Johnson, DO - IM PGY-1 Visit type - Emergency Visit Emergency Visit: No - New Patient This patient is new to me today: No - Critical Care Critical Care patient: No <Jose Manuel Flaherty - Last Filed: 11/08/17 17:18> Physical Exam: As per pulmonary to continue decadron 8mg IV q8h for now, start po in am
[2017-11-08] MEDS ORDERED: PT OWN MED DRAWER 7, Y5N ONE (22:06)
[2017-11-09] MEDS: DEXAMETHASONE SOD PHOSPHATE 10 MG/1 ML VIAL IVPUSH SCH ×2 (01:26→09:46)
[2017-11-09 06:33] LABS: URINE APPEARANCE CLEAR; URINE BILIRUBIN NEGATIVE (<2.0 mg/dL); URINE BLOOD NEGATIVE (NEGATIVE); URINE COLOR STRAW; URINE GLUCOSE (UA) NEGATIVE (NEGATIVE); URINE KETONE NEGATIVE (NEGATIVE); URINE LEUK ESTERASE NEGATIVE (NEGATIVE); URINE NITRITE NEGATIVE (NEGATIVE); URINE PROTEIN NEGATIVE (NEGATIVE); URINE UROBILINOGEN NEGATIVE mg/dL (0.2-1.0)
[2017-11-09] MEDS: PANTOPRAZOLE 40 MG TABLET (FP) PO SCH ×2 (09:46→21:09)
[2017-11-09] MEDS: HALOPERIDOL 1 MG TABLET (FP) PO SCH ×2 (09:46→21:09)
[2017-11-09] MEDS: NICOTINE 7 MG/24 HOURS TOPICAL PATCH TD SCH (09:46)
--- NOTE | 2017-11-09 11:34 | PN ---
Progress Note (short form) - Note Progress Note: NAD on RA. OOB to wheelchair in the hallway. Remains mildly confused. Less stridor appreciated. No acute events documented overnight. Intake & Output 11/06/17 11/07/17 11/08/17 11/09/17 23:59 23:59 23:59 23:59 Intake Total 1037 800 600 250 Balance 1037 800 600 250 Last Vital Signs Temp Pulse Resp BP Pulse Ox 98.2 F 62 20 124/67 95 11/09/17 06:20 11/09/17 06:20 11/09/17 06:20 11/09/17 06:20 11/08/17 22:51 Active Medications Dexamethasone Sodium Phosphate (Decadron Injection -) 8 mg IVPUSH Q8H-IV [facility] Last Admin: 11/09/17 09:46 Dose: 8 mg Haloperidol (Haldol -) 2 mg PO BID [facility] Last Admin: 11/09/17 09:46 Dose: 2 mg Nicotine (Nicoderm Patch -) 7 mg TD DAILY [facility] Last Admin: 11/09/17 09:46 Dose: 7 mg Pantoprazole Sodium (Protonix -) 40 mg PO BID [facility] Last Admin: 11/09/17 09:46 Dose: 40 mg Gen: NAD Neck: Less stridor Heart: RRR Lung: decreased breath sounds at the bases Abd: soft, nontender Ext: no edema A/P Stridor improving h/o Intracranial Hemorrhages Dementia - Change to 6 day taper of oral Decadron - No Pulmonary contraindication for D/C Dr Woodson
--- NOTE | 2017-11-09 19:25 | PN ---
Teaching Attending Note Name of Resident: Bartolome Johnson ATTENDING PHYSICIAN STATEMENT I saw and evaluated the patient. I reviewed the resident's note and discussed the case with the resident. I agree with the resident's findings and plan as documented. SUBJECTIVE: OBJECTIVE: Vital Signs Temperature 98.5 F 11/09/17 15:11 Pulse Rate 71 11/09/17 15:11 Respiratory Rate 20 11/09/17 15:11 Blood Pressure 133/72 11/09/17 15:11 O2 Sat by Pulse Oximetry (%) 95 11/09/17 09:00 CBCD WBC 7.7 K/mm3 (4.0-10.0) D 11/04/17 05:30 RBC 4.55 M/mm3 (3.60-5.2) 11/04/17 05:30 Hgb 14.6 GM/dL (10.7-15.3) D 11/04/17 05:30 Hct 42.2 % (32.4-45.2) 11/04/17 05:30 MCV 92.6 fl (80-96) 11/04/17 05:30 MCHC 34.7 g/dl (32.0-36.0) 11/04/17 05:30 RDW 14.5 % (11.6-15.6) 11/04/17 05:30 Plt Count 275 K/MM3 (134-434) 11/04/17 05:30 MPV 8.3 fl (7.5-11.1) 11/04/17 05:30 CMP Sodium 141 mmol/L (136-145) 11/07/17 06:26 Potassium 4.2 mmol/L (3.5-5.1) 11/07/17 06:26 Chloride 106 mmol/L (98-107) 11/07/17 06:26 Carbon Dioxide 26 mmol/L (21-32) 11/07/17 06:26 Anion Gap 9 (8-16) 11/07/17 06:26 BUN 35 mg/dL (7-18) H 11/07/17 06:26 Creatinine 0.7 mg/dL (0.55-1.02) 11/07/17 06:26 Creat Clearance w eGFR > 60 (>60) 11/03/17 05:45 Random Glucose 111 mg/dL (74-106) H 11/07/17 06:26 Calcium 8.8 mg/dL (8.5-10.1) 11/07/17 06:26 Total Bilirubin 0.6 mg/dL (0.2-1.0) 11/03/17 05:45 AST 11 U/L (15-37) L 11/03/17 05:45 ALT 16 U/L (12-78) 11/03/17 05:45 Alkaline Phosphatase 76 U/L (45-117) 11/03/17 05:45 Total Protein 6.4 g/dl (6.4-8.2) 11/03/17 05:45 Albumin 3.4 g/dl (3.4-5.0) 11/03/17 05:45 CARDIAC ENZYMES Creatine Kinase 174 IU/L (26-192) 11/02/17 10:31 Troponin I 0.07 ng/ml (0.00-0.06) H 11/02/17 18:28 Current Medications Generic Name Dose Route Start Last Admin Trade Name Freq PRN Reason Stop Dose Admin Dexamethasone 4 mg 11/09/17 22:00 Decadron - PO TID ELDA Haloperidol 2 mg 11/05/17 22:00 11/09/17 09:46 Haldol - PO 2 mg BID ELDA Administration Nicotine 7 mg 11/05/17 10:00 11/09/17 09:46 Nicoderm Patch - TD 7 mg DAILY ELDA Administration Pantoprazole Sodium 40 mg 11/04/17 22:00 11/09/17 09:46 Protonix - PO 40 mg BID ELDA Administration Home Medications Medication Instructions Recorded Haloperidol [Haldol -] 2 mg PO BID 11/02/17 Zolpidem Tartrate [Ambien] 5 mg PO HS 11/02/17 ASSESSMENT AND PLAN: Patient is a 67 y/o female with h/o Amyloid angiopathy, s/p ICH x 2, with affected cognition. s/p prolonged intubation in [facility] s/p extubation 10/03/17. She presented with acute resp distress and was found to have Stridor # Acute resp distress : with mild stridor continues as per pulmonary to continue Decadron 4mg q8h x3 days and 2mg q8h x 2 days on discharge continue Protonix 40mg po Bid. # Cognitive impairment , QT is within NL limit now, continue Haldol 2mg po bid DVT PX : SCDs due to h/o ICH x 2
[2017-11-09] MEDS: DEXAMETHASONE 4 MG TABLET (FP) PO SCH (21:12)
--- NOTE | 2017-11-09 21:21 | PN ---
Physical Exam: SUBJECTIVE: No acute events overnight. No new complaints today. OBJECTIVE: Vital Signs Period Temp Pulse Resp BP Sys/Hall Pulse Ox Last 24 Hr 98 F-98.5 F 59-71 18-20 122-146/67-76 95-97 GENERAL: Elderly woman, A&Ox2 (oriented to person and place, not date), in no acute distress, sitting HEENT: EOMI, LISA, moist mucosa, no edema of the oropharynx noted NECK: No notable peritracheal edema. Improved stridor noted. No masses palpated , No JVD LUNGS: Decreased breath sounds at bases. No wheezes, and no crackles. No accessory muscle use. HEART: RRR, normal S1 and S2 without murmur ABDOMEN: Soft, NT, ND, normoactive bowel sounds, no guarding, No hepatomegaly EXTREMITIES: 2+ DP pulses, No peripheral edema. PSYCHIATRIC: Flat affect SKIN: Warm, dry, no rashes or lesions noted Laboratory Results - last 24 hr 11/09/17 03:10 Urine Color Straw Urine Appearance Clear Urine pH 6.0 Ur Specific [place] 1.009 Urine Protein Negative Urine Glucose (UA) Negative Urine Ketones Negative Urine Blood Negative Urine Nitrite Negative Urine Bilirubin Negative Urine Urobilinogen Negative Ur Leukocyte Esterase Negative Active Medications Generic Name Dose Route Start Last Admin Trade Name Freq PRN Reason Stop Dose Admin Dexamethasone 4 mg 11/09/17 22:00 11/09/17 21:12 Decadron - PO 4 mg TID ELDA Administration Haloperidol 2 mg 11/05/17 22:00 11/09/17 21:09 Haldol - PO 2 mg BID ELDA Administration Nicotine 7 mg 11/05/17 10:00 11/09/17 09:46 Nicoderm Patch - TD 7 mg DAILY ELDA Administration Pantoprazole Sodium 40 mg 11/04/17 22:00 11/09/17 21:09 Protonix - PO 40 mg BID ELDA Administration ASSESSMENT/PLAN: 67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), residual cognitive deficits found to have respiratory distress and stridor 1) Acute respiratory distress --2/2 to stridor --Laryngoscopy performed without abnormality to anatomical structures noted --Decadron 4mg PO q7h x3 days, 2mg TID x2days, then stop --No COPD exacerbation 2) Prolonged QTc --Rpt EKG showing resolving normality of QTc while off of Haldol --Continue Haldol 2mg BID FEN: Fluids: Tolerating PO Electrolyte abnormalities: None Nutrition: Sodium controlled diet PPX: DVT - SCDs (prior h/o of ICH) Dispo: D/c planning; short-term rehab awaiting decisions Case discussed with Dr. Reynold Johnson, DO - IM PGY-1 Visit type - Emergency Visit Emergency Visit: No - New Patient This patient is new to me today: No - Critical Care Critical Care patient: No
[2017-11-10] MEDS: DEXAMETHASONE 4 MG TABLET (FP) PO SCH ×2 (05:56→14:29)
[2017-11-10 06:04] VITALS: TEMP 98.1
[2017-11-10] MEDS ORDERED: PT OWN MED DRAWER 7, Y5N ONE (08:50)
[2017-11-10] MEDS: NICOTINE 7 MG/24 HOURS TOPICAL PATCH TD SCH (09:00)
[2017-11-10] MEDS: PANTOPRAZOLE 40 MG TABLET (FP) PO SCH (09:00)
[2017-11-10] MEDS: HALOPERIDOL 1 MG TABLET (FP) PO SCH (09:01)
[2017-11-10 09:07] VITALS: BP 120/66; PULSE 63
--- NOTE | 2017-11-10 11:47 | PN ---
Progress Note (short form) - Note Progress Note: NAD on RA. Remains mildly confused. Less stridor appreciated. No acute events documented overnight. Intake & Output 11/07/17 11/08/17 11/09/17 11/10/17 23:59 23:59 23:59 23:59 Intake Total 800 600 920 100 Balance 800 600 920 100 Last Vital Signs Temp Pulse Resp BP Pulse Ox 98.1 F 63 18 120/66 99 11/10/17 09:00 11/10/17 09:00 11/10/17 09:00 11/10/17 09:00 11/10/17 09:00 Active Medications Albuterol/Ipratropium (Duoneb -) 1 amp NEB RQID [facility] Dexamethasone (Decadron -) 4 mg PO TID [facility] Last Admin: 11/10/17 05:56 Dose: 4 mg Haloperidol (Haldol -) 2 mg PO BID [facility] Last Admin: 11/10/17 09:01 Dose: 2 mg Nicotine (Nicoderm Patch -) 7 mg TD DAILY [facility] Last Admin: 11/10/17 09:00 Dose: 7 mg Pantoprazole Sodium (Protonix -) 40 mg PO BID [facility] Last Admin: 11/10/17 09:00 Dose: 40 mg Gen: NAD Neck: Less stridor Heart: RRR Lung: decreased breath sounds at the bases Abd: soft, nontender Ext: no edema A/P Stridor improving h/o Intracranial Hemorrhages Dementia - Change to 6 day taper of oral Decadron - No Pulmonary contraindication for D/C Dr Woodson
[2017-11-10] MEDS ORDERED: ALBUTEROL SO4 2.5/IPRATROPIUM 0.5 INH SOL 3 ML VIAL.NEB. NEB SCH (12:00)
--- NOTE | 2017-11-10 14:09 | DS ---
Physical Exam: SUBJECTIVE: Patient seen and examined OBJECTIVE: Vital Signs Period Temp Pulse Resp BP Sys/Hall Pulse Ox Last 24 Hr 98 F-98.5 F 59-71 18-20 120-146/66-79 97-99 PHYSICAL EXAM GENERAL: The patient is awake, alert, and fully oriented, in no acute distress. HEAD: Normal with no signs of trauma. EYES: PERRL, extraocular movements intact, sclera anicteric, conjunctiva clear. ENT: Ears normal, nares patent, oropharynx clear without exudates, moist mucous membranes. NECK: Trachea midline, full range of motion, supple. LUNGS: Breath sounds equal, clear to auscultation bilaterally, no wheezes, no crackles, no accessory muscle use. HEART: Regular rate and rhythm, S1, S2 without murmur, rub or gallop. ABDOMEN: Soft, nontender, nondistended, normoactive bowel sounds, no guarding, no rebound, no hepatosplenomegaly, no masses. EXTREMITIES: 2+ pulses, warm, well-perfused, no edema. NEUROLOGICAL: Cranial nerves II through XII grossly intact. Normal speech, gait not observed. PSYCH: Normal mood, normal affect. SKIN: Warm, dry, normal turgor, no rashes or lesions noted. LABS HOSPITAL COURSE: Date of Admission:11/02/17 Date of Discharge: 11/10/17 <Bartolome Johnson - Last Filed: 11/10/17 14:09> Physical Exam: Patient is discharged home with taper dose of Decadron. 4mg q8h x 3 days then 2mg q8h x 2 days. <Jose Manuel Flaherty - Last Filed: 11/10/17 20:44> Discharge Summary Reason For Visit: RESP. DISTRESS Current Active Problems Laryngeal stridor (Acute) Cerebral amyloid angiopathy (Chronic) Insomnia (Chronic) - Home Medications Comprehensive Discharge Medication List: Ambulatory Orders Haloperidol [Haldol -] 2 mg PO BID 11/02/17 Zolpidem Tartrate [Ambien] 5 mg PO HS 11/02/17 Dexamethasone [Decadron -] 2 mg PO Q8H #10 tablet 11/10/17 Dexamethasone [Decadron -] 4 mg PO TID 1 Days #3 tablet 11/10/17 <Bartolome Johnson - Last Filed: 11/10/17 14:09> - Home Medications Comprehensive Discharge Medication List: Ambulatory Orders Haloperidol [Haldol -] 2 mg PO BID 11/02/17 Zolpidem Tartrate [Ambien] 5 mg PO HS 11/02/17 Dexamethasone 2 mg PO TID #9 tablet 11/10/17 Dexamethasone [Decadron -] 4 mg PO TID 1 Days #3 tablet 11/10/17 <ReynoldMattromie - Last Filed: 11/10/17 20:44> Condition: Stable - Instructions Diet, Activity, Other Instructions: You were hospitalized here due to your stridor (abnormal breath sounds). You were given steroids while in the hospital to try to reduce any inflammation that may be causing this. In addition ENT doctors looked with a scope and did not see any abnormalities that needed to be addressed. You have been stable on steroids and have not worsened with your stridor. MEDICATIONS: You will be discharged with a Medrol taper pack Please take 4mg EVERY 8 HOURS tomorrow (11/11) by mouth 11/12/17 take 2mg EVERY 8 HOURS 11/13/17 Take 2mg EVERY 8 HOURS 11/14/17 Stop taking the Medrol medication Please continue taking your Haldol 2mg TWICE daily FOLLOW-UP: You will be discharged back to home with visiting nurse service which has been arranged for you. If this is not working then you will need to arrange a half-way facility as this is the next step in care. If you have worsening stridor, increased difficulty with swallowing, inability to swallow food or liquids then return to the ER for further evaluation You should follow-up with pulmonology after your taper to assess your stridor ; their information has been provided for you in the packet. Referrals: Jose Carreon MD [Staff Physician] - Cruz Woodson MD [Staff Physician] - Disposition: VNS/HOME HEALTH CARE - Discharge Referral Referred to [facility] No <Bartolome Johnson - Last Filed: 11/10/17 14:09>
== END 2017-11-10 16:17 | disposition home health service (06) | DRG 155 ==
LOC: FER 10:11 → JICU 21:51 → J7W 11-04 17:30
PROVIDERS: ADMIT Internal Medicine; ATTEND Internal Medicine
PROC: 0CJS8ZZ Inspection of Larynx, Via Natural or Artificial Opening Endoscopic (ICD-10-PCS; principal; 2017-11-04)
DX: J38.4 Edema of larynx (principal); E85.4 Organ-limited amyloidosis; R06.1 Stridor; G47.00 Insomnia, unspecified; F03.90 Unspecified dementia, unspecified severity, without behavioral disturbance, psychotic disturbance, mood disturbance, and anxiety; G31.84 Mild cognitive impairment of uncertain or unknown etiology; R06.01 Orthopnea; J38.5 Laryngeal spasm
CPT/HCPCS: 36415; 36600; 70490-TC; 71045-TC-FY; 71250-TC; 80048; 80053; 81003; 82375; 82550; 82553; 82803; 83050; 83605; 83735; 84100; 84484; 85025; 85379; 85610; 93005; 93010; 93306-TC; 94640; 94660; 97116-GP; 97162-GP; 99285-25; J1100; J7620